=== PATIENT | female | born 1935 | race Caucasian/White ===

== ENCOUNTER → 2019-06-07 13:00 | Outpatient (CLI) | payer MEDICARE, SELFPAY ==
--- NOTE | 2019-06-07 13:09 | ECHOCS_ITS ---
Reason For Study: Aortic Stenosis Procedure This was a 2D Doppler, Color Flow transthoracic echocardiogram. The study was technically difficult. Contrast injection was performed. Exam performed in department. Left Ventricle Normal LV size. Left ventricular systolic function is normal. The estimated ejection fraction is 65 %. No evidence for diastolic dysfunction. No regional wall motion abnormalities noted. Right Ventricle Normal RV size. Normal systolic function. Atria The left atrium is mildly enlarged. Normal right atrium. No doppler evidence for ASD. Mitral Valve There is mild to moderate mitral annular calcification. Extension of the mitral annular calcification onto the mitral valve leaflets. Mild (1+) mitral valve insufficiency. Tricuspid Valve The tricuspid valve is not well visualized. Mild to moderate (1-2+) eccentric tricuspid valve insufficiency. Right ventricular systolic pressure estimated to be 29 mmHg. Aortic Valve Trisinus/trileaflet aortic valve. Moderate focal aortic valve calcification. Aortic valve sclerosis/mild aortic valve stenosis. Pulmonic Valve The pulmonic valve is not well visualized. Great Vessels The aortic root is not well visualized. Pericardium/Pleural No pericardial effusion. Medication 22 gauge I.V. with prn adaptor inserted into right arm. Diluted definity 3ml given slow IV push to enhance endocardial definition. Performed a rapid injection of agitated mix of 9 cc saline and 1cc air to assess for atrial septal defect. MMode/2D Measurements & Calculations LVIDd: 3.9 cm IVSd: 1.5 cm LVOT diam: 2.0 cm LVIDs: 2.1 cm LVPWd: 1.3 cm RVDd: 3.0 cm FS: 47.0 % LVOT area: 3.2 cm2 LAV(MOD-bp): 48.5 ml LA A4 area: 21.0 cm2 RA A4 area: 15.1 cm2 LAV(MOD-bp) Indexed: 29.2 ml/m2 LAV(MOD-sp2): 36.6 ml LAV(MOD-sp4): 59.4 ml Time Measurements MV dec time: 0.32 sec Doppler Measurements & Calculations MV E max ruben: 69.6 cm/sec Lat Peak E' Ruben: 8.6 cm/sec Med Peak E' Ruben: 6.8 cm/sec MV A max ruben: 125.1 cm/sec E/E' lat: 8.1 E/E' med: 10.2 MV E/A: 0.56 MV V2 max: 136.8 cm/sec MV P1/2t max ruben: 91.5 cm/sec Ao V2 max: 196.1 cm/sec MV max P.5 mmHg MV P1/2t: 97.6 msec Ao max P.4 mmHg MV V2 mean: 66.1 cm/sec MV dec slope: 274.4 cm/sec2 Ao V2 mean: 119.4 cm/sec MV mean P.0 mmHg Ao mean P.0 mmHg MV V2 VTI: 31.4 cm MVA(P1/2t): 2.3 cm2 Ao V2 VTI: 34.3 cm MVA(VTI): 2.6 cm2 RICK(I,D): 2.4 cm2 RICK(V,D): 2.0 cm2 LV V1 max: 120.1 cm/sec SV(LVOT): 82.3 ml PA V2 max: 92.5 cm/sec LV V1 max P.8 mmHg LV V1 mean P.8 mmHg LV V1 mean: 76.6 cm/sec LV V1 VTI: 25.5 cm TR max ruben: 254.7 cm/sec TR max P.9 mmHg Interpretation Summary The study was technically difficult. Contrast injection was performed. Left ventricular systolic function is normal. The estimated ejection fraction is 65 %. The left atrium is mildly enlarged. There is mild to moderate mitral annular calcification. Extension of the mitral annular calcification onto the mitral valve leaflets. Mild (1+) mitral valve insufficiency. Mild to moderate (1-2+) eccentric tricuspid valve insufficiency. Moderate focal aortic valve calcification. Aortic valve sclerosis/mild aortic valve stenosis. Right ventricular systolic pressure estimated to be 29 mmHg. No evidence for diastolic dysfunction. Ordering Physician: ARIE HAYWOOD Referring Physician: ARIE HAYWOOD Performed By: Tristen Samaniego RCS
== END ==
PROVIDERS: PCP Internal Medicine
DX: I35.0 Nonrheumatic aortic (valve) stenosis (principal)
CPT/HCPCS: 93306; Q9957; C8929

== ENCOUNTER 2021-04-17 16:45 | Observation (INO) | payer MEDICARE, SELFPAY ==
[2021-04-17] VITALS (7 sets, daily range): BP systolic 145–159; BP diastolic 84–129; PULSE 77–161; RESP 16–20; TEMP 36.4–36.6; O2SAT 95–99; BMI 33.3; BMI 28.6
--- NOTE | 2021-04-17 17:11 | EKG12_ITS ---
Test Reason : TACHY Blood Pressure : / mmHG Vent. Rate : 156 BPM Atrial Rate : 300 BPM P-R Int : 000 ms QRS Dur : 076 ms QT Int : 276 ms P-R-T Axes : 000 067 014 degrees QTc Int : 444 ms Atrial Fibrillation/ Atrial flutter with variable A-V block / nonspecific ST/ T wave abnormality Abnormal ECG Confirmed by MELISSA LOVELL, MATIAS ([id number]), science editor HERMAN FU ([id number]) on 04/20/2021 12:47:41 PM Referred By: CALLUM Confirmed By:MATIAS TORRES MD
--- NOTE | 2021-04-17 17:13 | EDS_ITS ---
HPI History of Present Illness Chief Complaint: Palpitations Informant: patient and spouse/S.O. Narrative Narrative: Patient presents with atrial fibrillation that she thinks started about 3 hours ago. She has had this several times in the past. She is on Xarelto because of this. However she thinks she missed her dose today. She is not having chest pain but she definitely has dyspnea and some dyspnea on exertion. She did have some tingling in her arms and some aching in her shoulders. That is now gone. It sounds like she is always converted on her own or with medication. I does not sound like she has had cardioversion or ablation. She is on nothing for rate control. She is on Synthroid and she thinks the levels were last checked over the summer. Nothing seems to make the symptoms better or worse. This occurred while she was walking back to her house on her driveway. This is an activity she does regularly without difficulties. She is on a few days of prednisone because of back pain issues. The back is doing okay. Patient has no history of cardiovascular disease. She has never had stents or heart catheterization. She normally walks quite a bit without any symptoms. [facility] Medical History Atrial fibrillation Chronic pain Hypertension Hypothyroidism Home Medications irbesartan-hydrochlorothiazide 1 tab PO DAILY 04/17/21 [History Last Taken 04/17/21] levothyroxine 125 mcg PO DAILY 04/17/21 [History Last Taken 04/17/21] omeprazole 20 mg PO DAILY 04/17/21 [History Last Taken 04/17/21] prednisone 20 mg PO BID 04/17/21 [History Last Taken 04/17/21] rivaroxaban [Xarelto] 20 mg PO DAILY 04/17/21 [History Last Taken 04/16/21] tizanidine 4 mg PO Q8H 04/17/21 [History Last Taken Unknown] Allergy/AdvReac Type Severity Reaction Status Date / Time No Known Allergies Allergy Verified 04/17/21 20:04 Social History Smoking Status: Never smoker ROS ROS ED Constitutional Constitutional ED: Denies chills or fever(s) Eyes Eyes: Denies blurry vision ENT ENT ED: Denies rhinorrhea Cardiovascular Cardiovascular: Reports palpitations and racing heartbeat; Denies chest pain Respiratory/Chest Respiratory/Chest: Reports dyspnea; Denies cough or sputum Gastrointestinal Gastrointestinal: Denies nausea or vomiting Genitourinary Genitourinary ED: Denies hematuria Musculoskeletal Musculoskeletal: Denies back pain or neck pain Integumentary Denies rash Neurologic Neurologic: Denies headache(s), paresthesias or weakness Psychiatric Psychiatric: Denies anxiety Endocrine Endocrinology: Denies polydipsia or polyuria Allergic/Immunologic Allergic/Immunologic ED: Denies mouth swelling or urticaria EXAM Physical Exam Const Vital Signs: 04/17/21 16:46 04/17/21 16:49 04/17/21 16:56 Temperature 97.8 F 97.8 F Temperature Source Temporal Temporal Pulse Rate 161 H 157 H Respiratory Rate 18 18 Respiratory Pattern Normal Blood Pressure 146/129 H Blood Pressure Mean 134 Blood Pressure Source Blood Pressure Position Blood Pressure Location Pulse Ox 95 99 Oxygen Delivery Method Room Air Room Air 04/17/21 18:01 04/17/21 19:02 04/17/21 20:02 Temperature 97.5 F L 97.6 F L Temperature Source Temporal Oral Pulse Rate 90 82 79 Respiratory Rate 20 H 16 18 Respiratory Pattern Blood Pressure 145/94 H 145/90 H 159/84 H Blood Pressure Mean 111 108 109 Blood Pressure Source Monitor Blood Pressure Position Semi-Fowlers Blood Pressure Location Right Arm Pulse Ox 97 96 99 Oxygen Delivery Method Room Air Room Air 04/17/21 20:37 Temperature Temperature Source Pulse Rate 79 Respiratory Rate Respiratory Pattern Blood Pressure 159/84 H Blood Pressure Mean Blood Pressure Source Blood Pressure Position Blood Pressure Location Pulse Ox Oxygen Delivery Method Positive well nourished and well developed General Appearance ED: well developed and NAD; Negative for cyanotic or diaphoretic HEENT Reports dry mucous membranes HEENT Narrative: Mildly dry mucous membranes. Mouth ED: Yes dry mucous membranes Mouth: dry mucous membranes Eyes General Eye ED: Negative for pale conjunctiva or scleral icterus Neck no JVD Chest Wall inspection of chest normal Resp normal respiratory effort and clear to auscultation bilaterally Auscultation: Negative for rales Cardio Rate: tachycardic Rhythm: abnormal rhythm GI normal to inspection, nondistended, normoactive bowel sounds and non-tender Palpation: soft Back/Spine no CVA tenderness Extremity normal to inspection General Extremety ED: Negative for edema or tenderness General Extremity: Negative for edema Neuro oriented x3 Sensorium / Orientation: alert Psych mental status grossly normal Skin no rashes or lesions noted MDM MDM MDM Narrative Medical decision making narrative: Patient was given 10 of diltiazem. She slowed down about 115. We are about to give her another dose and she actually converted to normal sinus rhythm. She had occasional PACs. She was feeling better with this. My concern is that this patient's troponin is up at 144. She had some discomfort across her shoulders along with dyspnea and some signs of ST depression on her EKG. This is concerning for what is essentially a failed stress test. I have hospitalist on page to discuss the case with them at this time. Lab Data Attestation: I reviewed the patient's lab results. Labs: Laboratory Results - last 24 hr 04/17/21 04/17/21 16:55 16:55 WBC 11.9 H RBC 3.11 L Hgb 11.0 L Hct 32.9 L MCV 105.8 H MCH 35.4 H MCHC 33.4 RDW Std Deviation 51.8 H RDW Coeff of Yifan 13.3 Plt Count 346 MPV 10.8 Immature Gran % (Auto) 1.000 H Neut % (Auto) 86.2 H Lymph % (Auto) 9.8 L [place] % (Auto) 2.7 Eos % (Auto) 0.1 Baso % (Auto) 0.2 Absolute Neuts (auto) 10.3 H Absolute Lymphs (auto) 1.17 Nucleated RBC % 0 Sodium 138 Potassium 4.2 Chloride 104 Carbon Dioxide 25.0 Anion Gap 9 BUN 30 H Creatinine 0.99 Estim Creat Clear Calc 29.30 Est GFR (MDRD) Af Amer 68 Est GFR (MDRD) Non-Af 57 L BUN/Creatinine Ratio 30.4 H Glucose 139 H Calcium 9.4 Troponin I High Sens 144 H* TSH 1.68 Radiography Diagnostic Testing: Clinical Impression(s) from Imaging Studies Chest X-Ray 04/17/21 17:20 IMPRESSION: No radiographic evidence of acute cardiopulmonary disease. at 2012 Reported and signed by: Victor Hugo Marie MD Electronically Signed: Victor Hugo Marie MD at 20:11 EST Tel , Service support , EKG Initial EKG: Comments: EKG done for palpitations read by me shows atrial fib/flutter with variable block. Overall rate of 156. No ventricular ectopy noted. Mild diffuse ST and T wave changes. No indication of infarct. QRS duration and QTc are normal. No old for comparison. Discharge Plan Dx/Rx/DC Orders Clinical Impression: Atrial fibrillation with RVR, Acute dyspnea, Elevated troponin Disposition Disposition: Acute Care Hospital [facility] Discharge Date/Time: 04/17/21 19:45
[2021-04-17] MEDS: 0.9% Normal Saline 1,000 ML 1000 ML IV (17:20)
[2021-04-17] MEDS: dilTIAZem 25 MG/5 ML Vial 10 MG IV BOLUS ×2 (17:20→17:57)
--- NOTE | 2021-04-17 17:20 | RAD_ITS ---
EXAM: XR CHEST, 1 VIEW : 1934 CLINICAL INDICATION: chest pain TECHNIQUE: Frontal view of the chest. This report was created using [employer] report generation technology. COMPARISON: None. FINDINGS: LUNGS AND PLEURAL SPACES: Unremarkable. No consolidation or edema. No pneumothorax. No effusion. HEART: Unremarkable. Cardiac silhouette not enlarged. MEDIASTINUM: Central airways and mediastinal contour are unremarkable. BONES/JOINTS: Unremarkable. SOFT TISSUES: Unremarkable. RAD/Chest 1 View (Portable) IMPRESSION: No radiographic evidence of acute cardiopulmonary disease. at 2012 Reported and signed by: Victor Hugo Marie MD Electronically Signed: Victor Hugo Marie MD at 20:11 EST Tel , Service support ,
[2021-04-17 17:22] LABS: Absolute Lymphocyte Count 1.17 X10^3/uL (0.83-4.51); Absolute Neutrophil Count 10.3 X10^3/uL (2.0-7.7); Basophil# 0.02 X10^3/uL; Basophil% 0.2 % (0-1); Eosinophil# 0.01 X10^3/uL; Eosinophils% 0.1 % (0-5); Hematocrit 32.9 % (37-47); Lymphocyte # 1.17 X10^3/ul (0.83-4.51); Lymphocyte % 9.8 % (19-41); Mean Corp Hgb Conc 33.4 g/dL (32-36); Mean Corpuscular Hgb 35.4 pg (27.0-32.0); Mean Corpuscular Volume 105.8 fL (81-99); Mean Platelet Vol. 10.8 fl (6.2-12.0); Monocyte# 0.32 X10^3/uL; Monocyte% 2.7 % (0-10); NRBC Flagged by Analyzer 0 % (0-5); Neutrophil # 10.26 X10^3/uL (2.7-7.7); Neutrophil % 86.2 % (47-70); Platelet Count 346 K/mm3 (150-450); RBC Distribution Width CV 13.3 % (11.6-14.6); RBC Distribution Width SD 51.8 fl (35.1-43.9); Red Blood Count 3.11 M/mm3 (4.2-5.4); White Blood Count 11.9 K/mm3 (4.4-11.0)
[2021-04-17 17:52] LABS: Anion Gap 9 (5-15); BUN 30 mg/dL (7-18); BUN/Creat Ratio 30.4 RATIO (10-20); Calcium,Total 9.4 mg/dL (8.5-10.1); Chloride 104 mmol/L (98-107); Creatinine, Serum 0.99 mg/dL (0.55-1.02); EST Glomerular Filtration Rate 57 mL/min (>60); Est Glom Filt Rate - Afr Amer 68 mL/min (>60); Glucose 139 mg/dL (74-106); Potassium 4.2 mmol/L (3.5-5.1); Sodium Level 138 mmol/L (136-145); Thyroid Stim Hormone (TSH) 1.68 uIU/mL (0.358-3.74); Troponin-I HS 144 pg/mL (3.0-54.0)
--- NOTE | 2021-04-17 17:55 | ED.RN ---
Addendum entered by Stephanie La 04/17/21 18:14: correction dr zapata not dr green Addendum entered by Stephanie La 04/17/21 18:12: called for ekg. dr green aware. verbal order to hold cardizem drip Original Note: pt converted to nsr after second dose of cardizem
--- NOTE | 2021-04-17 18:10 | EKG12_ITS ---
Test Reason : REPEAT Blood Pressure : / mmHG Vent. Rate : 083 BPM Atrial Rate : 083 BPM P-R Int : 156 ms QRS Dur : 082 ms QT Int : 362 ms P-R-T Axes : 062 064 046 degrees QTc Int : 425 ms Normal sinus rhythm Normal ECG Confirmed by MEILSSA LOVELL, MATIAS ([id number]), photographic editor HERMAN FU ([id number]) on 04/20/2021 12:48:23 PM Referred By: LAWRENCE Confirmed By:MATIAS TORRES MD
--- NOTE | 2021-04-17 19:01 | HP.PCM.HOS_ITS ---
HPI - General General Date of Admission: 04/17/21 HPI Narrative ALEX TRAN, is a 85 F who presents with chest palpitations and she was outside in the cold weather on her driveway when she noted some acute dyspnea and tingling in her shoulders like she was not getting enough air. She did not have any pronounced chest pain. She was recently on prednisone but does not have any other major events recently that may have precipitated the atrial fibrillation. She has had runs of atrial fibrillation in the past. She follows with her primary care doctor regarding the hypothyroidism. She has a history of GI bleed so she does not take aspirin but she is on Xarelto and is compliant wi this as well as her blood pressure medicine. The patient did come into the ED with her son and she was noted to be in atrial fibrillation, and was given 10 mg Cardizem IV and converted back to NSR. Patient's vitals are stable from blood pressure standpoint and she had no hypoxia. EKG with A. fib was noted with some lateral ST depressions. Troponin did come back elevated mildly at 144. X-ray was reviewed by me with no pronounced cardiomegaly or lobar consolidation process. She is not a smoker or EtOH user Family history was reviewed, not significant for any early heart disease [facility] Medical History Atrial fibrillation Hypertension Hypothyroidism Home Medications irbesartan-hydrochlorothiazide 1 tab PO DAILY 04/17/21 [History Last Taken Unknown] levothyroxine 125 mcg PO DAILY 04/17/21 [History Last Taken Unknown] omeprazole 20 mg PO DAILY 04/17/21 [History Last Taken Unknown] prednisone 20 mg PO BID 04/17/21 [History Last Taken Unknown] rivaroxaban [Xarelto] 20 mg PO DAILY 04/17/21 [History Last Taken Unknown] tizanidine 4 mg PO Q8H 04/17/21 [History Last Taken Unknown] Allergy/AdvReac Type Severity Reaction Status Date / Time No Known Allergies Allergy Verified 04/17/21 16:51 Social History Smoking Status: Never smoker ROS ROS Narrative No fevers, chills, cough nausea vomiting belly pain diarrhea constipation hematuria dysuria. She does not have any issues with falls. She does not have any skin problems but does have a little lower extremity edema at times. She sleeps okay with no underlying anxiety/depression Vital Signs Vital Signs Vital Signs: 04/17/21 16:46 04/17/21 16:49 04/17/21 16:56 Temperature 97.8 F 97.8 F Temperature Source Temporal Temporal Pulse Rate 161 H 157 H Respiratory Rate 18 18 Respiratory Pattern Normal Blood Pressure 146/129 H Blood Pressure Mean 134 Pulse Ox 95 99 Oxygen Delivery Method Room Air Room Air 04/17/21 18:01 Temperature Temperature Source Pulse Rate 90 Respiratory Rate 20 H Respiratory Pattern Blood Pressure 145/94 H Blood Pressure Mean 111 Pulse Ox 97 Oxygen Delivery Method Weight Weight: 170 lb 6.677 oz Body Mass Index (BMI) 33.3 Physical Exam Const alert and no apparent distress General Appearance: cooperative HEENT normocephalic and head/scalp atraumatic Eyes EOMs intact bilaterally Neck no lymphadenopathy and supple Cardio regular rate, regular rhythm and S1 normal heart sound Cardio Narrative: Did note a 2 out of 6 systolic murmur at the right upper sternal border GI normal to inspection, nondistended, normoactive bowel sounds and soft to palpation Extremity normal to inspection Neuro Sensorium / Orientation: alert and oriented to person Psych affect normal Results Lab / Micro Data Result Diagrams: 04/17/21 16:55 04/17/21 16:55 Labs: Laboratory Results - last 24 hr 04/17/21 16:55: WBC 11.9 H, RBC 3.11 L, Hgb 11.0 L, Hct 32.9 L, MCV 105.8 H, MCH 35.4 H, MCHC 33.4, RDW Std Deviation 51.8 H, RDW Coeff of Yifan 13.3, Plt Count 346, MPV 10.8, Immature Gran % (Auto) 1.000 H, Neut % (Auto) 86.2 H, Lymph % (Auto) 9.8 L, [place] % (Auto) 2.7, Eos % (Auto) 0.1, Baso % (Auto) 0.2, Absolute Neuts (auto) 10.3 H, Absolute Lymphs (auto) 1.17, Nucleated RBC % 0 04/17/21 16:55: Sodium 138, Potassium 4.2, Chloride 104, Carbon Dioxide 25.0, Anion Gap 9, BUN 30 H, Creatinine 0.99, Estim Creat Clear Calc 29.30, Est GFR (MDRD) Af Amer 68, Est GFR (MDRD) Non-Af 57 L, BUN/Creatinine Ratio 30.4 H, Glucose 139 H, Calcium 9.4, Troponin I High Sens 144 H*, TSH 1.68 Assessment & Plan Assessment/Plan (1) Elevated troponin: (2) Acute dyspnea: (3) Atrial fibrillation with RVR: PLAN: Atrial fibrillation resolved Elevated troponin -For atrial fibrillation we will start Lopressor 12.5 twice daily -Continue Xarelto for anticoagulation -Cycle troponins x2 more -Check mag, and check her TSH and morning -Given 1 L IVF iin the ED -2D echo. Last echo nearly 2 years ago did show EF of 65% with mitral and tricuspid valve insufficiency and moderate aortic valve calcifications -Monitor with telemetry -Check Lipid panel. Start Lipitor 20 mg -Start aspirin 81 mg, and continue the patient on indefinite PPI for GI prophylaxis given history of GI bleed in the past Hypothyroidism -Resume home Synthroid 125 Hypertension -Resume home medication CODE STATUS: Patient is a DNR and this was discussed with the patient and family Ulisses Carballo MD Charges/Coding Visit Charges Inpatient E&M: 88804 Init Hosp L2
--- NOTE | 2021-04-17 19:09 | ECHOD_ITS ---
Reason For Study: Afib, Aflutter Procedure This was a 2D Doppler, Color Flow transthoracic echocardiogram. The study was technically difficult. Exam performed portable in patient room. Left Ventricle Normal LV size. Moderate concentric left ventricular hypertrophy. Apical false tendon noted. Left ventricular systolic function is hyperdynamic. The estimated ejection fraction is 75 %. There is evidence of diastolic dysfunction. No regional wall motion abnormalities noted. Right Ventricle Normal RV size. Normal systolic function. Atria Normal left atrium. Normal right atrium. No doppler evidence for ASD. Mitral Valve There is moderate to severe mitral annular calcification. Extension of the mitral annular calcification onto the posterior mitral valve leaflet. Mild focal mitral valve calcification of the anterior leaflet. The mitral papillary muscle appears thickened and/or calcified. Mild (1+) eccentric mitral valve insufficiency. Tricuspid Valve Normal tricuspid valve. Mild to moderate (1-2+) tricuspid valve insufficiency. Right ventricular systolic pressure estimated to be 37 mmHg. Aortic Valve Trisinus/trileaflet aortic valve. Mild focal aortic valve calcification. Pulmonic Valve The pulmonic valve is not well visualized. Mild (1+) pulmonic valve insufficiency. Great Vessels Normal sized aortic root. Pericardium/Pleural No pericardial effusion. MMode/2D Measurements & Calculations LVIDd: 3.3 cm IVSd: 1.4 cm LVOT diam: 2.1 cm LVIDs: 1.9 cm LVPWd: 1.3 cm LVOT area: 3.5 cm2 RVDd: 3.4 cm FS: 41.0 % Ao root diam: 3.4 cm LAV(MOD-bp): 30.5 ml LVAd ap4: 14.1 cm2 LAV(MOD-bp) Indexed: 18.7 ml/m2 LVLd ap4: 6.2 cm LAV(MOD-sp2): 26.8 ml EDV(MOD-sp4): 26.6 ml LAV(MOD-sp4): 30.9 ml EDV(sp4-el): 27.0 ml LVAs ap4: 6.9 cm2 LVLs ap4: 5.0 cm ESV(MOD-sp4): 8.2 ml ESV(sp4-el): 8.1 ml EF(MOD-sp4): 69.0 % EF(sp4-el): 70.2 % SV(MOD-sp4): 18.3 ml SV(sp4-el): 19.0 ml LA A4 area: 14.3 cm2 LA dimension(2D): 2.7 cm RA A4 area: 10.7 cm2 Doppler Measurements & Calculations MV E max ruben: 83.0 cm/sec Lat Peak E' Ruben: 5.5 cm/sec Med Peak E' Ruben: 4.5 cm/sec MV A max ruben: 131.6 cm/sec E/E' lat: 15.1 E/E' med: 18.4 MV E/A: 0.63 Ao V2 max: 247.1 cm/sec LV V1 max: 182.5 cm/sec SV(LVOT): 101.2 ml Ao max P.5 mmHg LV V1 max P.3 mmHg Ao V2 mean: 180.1 cm/sec LV V1 mean P.3 mmHg Ao mean P.4 mmHg LV V1 mean: 137.2 cm/sec Ao V2 VTI: 38.5 cm LV V1 VTI: 28.9 cm RICK(I,D): 2.6 cm2 RICK(V,D): 2.6 cm2 PA V2 max: 103.0 cm/sec TR max ruben: 290.5 cm/sec TR max P.8 mmHg ECHO/Echo Complete Interpretation Summary Left ventricular systolic function is hyperdynamic. The estimated ejection fraction is 75 %. Moderate concentric left ventricular hypertrophy. Apical false tendon noted. There is moderate to severe mitral annular calcification. Extension of the mitral annular calcification onto the posterior mitral valve l eaflet. Mild focal mitral valve calcification of the anterior leaflet. The mitral papillary muscle appears thickened and/or calcified. Mild (1+) eccentric mitral valve insufficiency. Mild to moderate (1-2+) tricuspid valve insufficiency. Mild focal aortic valve calcification. Mild (1+) pulmonic valve insufficiency. Right ventricular systolic pressure estimated to be 37 mmHg. There is evidence of diastolic dysfunction. Comment: Late peaking spectral Doppler pattern in the mid LV cavity approaching 3 m/s (peak gradient 36 mmHg) appearing compatible with a hyperdynamic state. Ordering Physician: Ulisses Carballo Referring Physician: Art Hayward Performed By: Renata Valladares, ODALYS, RVT
[2021-04-17] MEDS: Metoprolol Tartrate 25 MG Tablet 12.5 MG PO (20:37)
[2021-04-17] MEDS: Atorvastatin Calcium 20 MG Tablet PO (20:38)
--- NOTE | 2021-04-17 23:51 | PCS.PANDOC ---
PANDEMIC DOCUMENTATION INITIATED: Date: 11/23/2020 Time: 190
--- NOTE | 2021-04-17 23:51 | PCS.PANDOC ---
PANDEMIC DOCUMENTATION INITIATED: Date: 11/23/2020 Time: 190
[2021-04-18] VITALS (13 sets, daily range): BP systolic 164–196; BP diastolic 74–108; PULSE 67–83; RESP 14–20; TEMP 36.7–37.2; O2SAT 96–99
[2021-04-18 00:14] LABS: Troponin-I HS 1562 pg/mL (3.0-54.0)
[2021-04-18] MEDS: Acetaminophen 325 MG Tablet 650 MG PO (00:33)
[2021-04-18 05:17] LABS: Absolute Lymphocyte Count 2.79 X10^3/uL (0.83-4.51); Basophil# 0.03 X10^3/uL; Basophil% 0.3 % (0-1); Eosinophils% 1.1 % (0-5); Hematocrit 29.9 % (37-47); Hemoglobin 9.7 g/dL (12.0-15.0); Lymphocyte # 2.79 X10^3/ul (0.83-4.51); Lymphocyte % 29.6 % (19-41); Mean Corp Hgb Conc 32.4 g/dL (32-36); Mean Corpuscular Hgb 34.4 pg (27.0-32.0); Mean Platelet Vol. 10.3 fl (6.2-12.0); Monocyte# 0.47 X10^3/uL; NRBC Flagged by Analyzer 0 % (0-5); Neutrophil # 5.95 X10^3/uL (2.7-7.7); Platelet Count 300 K/mm3 (150-450); RBC Distribution Width CV 13.3 % (11.6-14.6); RBC Distribution Width SD 51.5 fl (35.1-43.9); Red Blood Count 2.82 M/mm3 (4.2-5.4); White Blood Count 9.4 K/mm3 (4.4-11.0)
[2021-04-18] MEDS: Levothyroxine 125 MCG Tablet PO (06:11)
[2021-04-18] MEDS: Metoprolol Tartrate 25 MG Tablet 12.5 MG PO (06:40)
[2021-04-18 06:43] LABS: Anion Gap 7 (5-15); BUN 23 mg/dL (7-18); BUN/Creat Ratio 25.4 RATIO (10-20); Chloride 106 mmol/L (98-107); Cholesterol 161 mg/dL (200); EST Glomerular Filtration Rate 63 mL/min (>60); Est Glom Filt Rate - Afr Amer 76 mL/min (>60); Estimated Creatinine Clearance 32.23 ml/min; Glucose 94 mg/dL (74-106); High Density Lipoprotein 53 mg/dL; Potassium 4.2 mmol/L (3.5-5.1); Sodium Level 140 mmol/L (136-145); Thyroid Stim Hormone (TSH) 2.88 uIU/mL (0.358-3.74); Triglycerides 96 mg/dL; Troponin-I HS 1639 pg/mL (3.0-54.0); Very Low Density Lipoprotein 19 mg/dL (5-40)
[2021-04-18] MEDS: Losartan Potassium 50 MG Tablet PO ×2 (08:06→14:03)
[2021-04-18] MEDS: Aspirin 81 MG TAB.CHEW PO (08:06)
[2021-04-18] MEDS: Pantoprazole Sodium 20 MG Tablet PO (08:06)
[2021-04-18] MEDS: hydroCHLOROthiazide 12.5mg 12.5 MG PO ×2 (08:07→17:44)
--- NOTE | 2021-04-18 12:35 | PN.HOSP_ITS ---
Documented by User: Jorge BELL 04/18/21 12:49 Subjective Subjective Patient is an 85-year-old female comfortably resting in bed, alert and orient x3. Patient denies palpitations or chest pain, reports ongoing shortness of breath which is a chronic problem for her. Patient also reports right shoulder pain. Does not appear in acute distress. Objective Data Objective Data Vital Signs: Vital Signs Temp Pulse Resp BP Pulse Ox 98.0 F 67 18 167/92 H 98 04/18/21 08:03 04/18/21 08:03 04/18/21 08:03 04/18/21 08:03 04/18/21 08:03 Oxygen Delivery Method Room Air Weight: 146 lb 9.718 oz Body Mass Index (BMI) 28.6 Intake & Output: Intake and Output for Last 24 Hours 04/16/21 04/17/21 04/18/21 23:59 23:59 23:59 Intake Total 1000 / 1000 Balance 1000 / 1000 Lab / Micro Data Result Diagrams: 04/18/21 05:04 04/18/21 05:04 Labs: Laboratory Results - last 24 hr 04/17/21 16:55: WBC 11.9 H, RBC 3.11 L, Hgb 11.0 L, Hct 32.9 L, MCV 105.8 H, MCH 35.4 H, MCHC 33.4, RDW Std Deviation 51.8 H, RDW Coeff of Yifan 13.3, Plt Count 346, MPV 10.8, Immature Gran % (Auto) 1.000 H, Neut % (Auto) 86.2 H, Lymph % (Auto) 9.8 L, [place] % (Auto) 2.7, Eos % (Auto) 0.1, Baso % (Auto) 0.2, Absolute Neuts (auto) 10.3 H, Absolute Lymphs (auto) 1.17, Nucleated RBC % 0 04/17/21 16:55: Sodium 138, Potassium 4.2, Chloride 104, Carbon Dioxide 25.0, Anion Gap 9, BUN 30 H, Creatinine 0.99, Estim Creat Clear Calc 29.30, Est GFR (MDRD) Af Amer 68, Est GFR (MDRD) Non-Af 57 L, BUN/Creatinine Ratio 30.4 H, Glucose 139 H, Calcium 9.4, Troponin I High Sens 144 H*, TSH 1.68 01/08/22 23:12: Troponin I High Sens 1562 H* 04/18/21 05:04: WBC 9.4, RBC 2.82 L, Hgb 9.7 L, Hct 29.9 L, MCV 106.0 H, MCH 34.4 H, MCHC 32.4, RDW Std Deviation 51.5 H, RDW Coeff of Yifan 13.3, Plt Count 300, MPV 10.3, Immature Gran % (Auto) 1.000 H, Neut % (Auto) 63.0, Lymph % (Auto) 29.6, [place] % (Auto) 5.0, Eos % (Auto) 1.1, Baso % (Auto) 0.3, Absolute Neuts (auto) 6.0, Absolute Lymphs (auto) 2.79, Nucleated RBC % 0 04/18/21 05:04: Sodium 140, Potassium 4.2, Chloride 106, Carbon Dioxide 27.0, Anion Gap 7, BUN 23 H, Creatinine 0.90, Estim Creat Clear Calc 32.23, Est GFR (MDRD) Af Amer 76, Est GFR (MDRD) Non-Af 63, BUN/Creatinine Ratio 25.4 H, Glucose 94, Calcium 9.0, Troponin I High Sens 1639 H*, Triglycerides 96, Cholesterol 161, LDL Cholesterol 89, VLDL Cholesterol 19, HDL Cholesterol 53, TSH 2.88 Radiography Diagnostic Testing: Radiology Impression Chest X-Ray 04/17/21 17:20 IMPRESSION: No radiographic evidence of acute cardiopulmonary disease. at 2012 Reported and signed by: Victor Hugo Marie MD Electronically Signed: Victor Hugo Marie MD at 20:11 EST Tel , Service support , Physical Exam Const alert, oriented x3 and no apparent distress HEENT head/scalp atraumatic and moist oral mucous membranes Head and Scalp: normocephalic Eyes PERRL, EOMs intact bilaterally and conjunctivae normal Neck no lymphadenopathy, supple and no JVD Resp normal respiratory effort, no retractions, no use of accessory muscles and clear to auscultation bilaterally Cardio regular rate, regular rhythm, no murmurs and no JVD GI normal to inspection, nondistended, normoactive bowel sounds, soft to palpation and non-tender Extremity normal to inspection, full ROM and no clubbing, cyanosis or edema Skin no rashes or lesions noted, no wounds and skin turgor normal Neuro CN's II-XII intact bilaterally Psych affect normal Assessment & Plan Assessment/Plan (1) Atrial fibrillation with RVR: (2) Acute dyspnea: (3) Elevated troponin: PLAN: Day 1 Discharge planning: Current plan is for patient to discharge home when medically ready. 1) A. fib with RVR Patient is currently maintaining normal sinus rhythm. Rate is currently controlled on oral diltiazem and metoprolol. Cardizem drip discontinued this morning, per cardiology recommendations. TSH within normal limits, magnesium ordered/pending, potassium within normal limits. Obtain echo in a.m. 2) elevated troponin High-sensitivity troponins elevated at 144, 1562 and 1639 respectively. Lipid panel within normal limits. Cardiology consult ordered, heparin drip initiated. Continue aspirin and statin. 3) hypothyroidism TSH within normal limits, as above. Continue home Synthroid. 4) HTN Continue metoprolol, hydrochlorothiazide and losartan. 5) chronic back pain Stable, continue tizanidine. 6) GERD Continue Protonix. DVT prophylaxis -not indicated, on heparin drip as above. Patient seen by Jorge De Jesus PA-C, under the supervision of Dr. Tate. Time spent on patient care: 12 minutes. Documented by User: Dr. Jayla Tate MD 04/18/21 17:51 Objective Data Lab / Micro Data Result Diagrams: 04/18/21 05:04 04/18/21 05:04 Charges/Coding Addendum Addendum: This patient was seen in conjunction with ARABELLA Monique. I have independently interviewed and examined the patient and reviewed pertinent historical, laboratory, and other data. Please refer to ARABELLA Monique's note for his patient's presentation, findings, and recommendations. I have reviewed and his note and concur with his documentation Patient was seen and examined. She denied any new complaints. Her heart rate is controlled. No acute events overnight. Vitals are stable except for uncontrolled blood pressure Physical Exam: Gen: Comfortable, not pale, not jaundiced CVS:HS I +II, regular, no murmurs RESP: Diminished at lung bases GI: BS present and normal, soft, nontender, no palpable organs EXT:No edema ASSESSMENT: 1. A. fib with RVR 2. Acute non-STEMI 3. Hypertensive urgency 4. Hypothyroidism 5. Hypertension 6. Chronic low back pain 7. GERD Plan: Continue to wean off Cardizem drip, continue on oral Cardizem and metoprolol Discussed with cardiology, start on heparin drip Possible cardiac cath in a.m. Increase losartan 200 mg p.o. daily Increase metoprolol to 50 mg p.o. daily Increase hydrochlorothiazide to 25 mg p.o. daily Continue to monitor blood pressure Time spent coordinating patient's care, discussing with nursing, discussing with subspecialists: 25 minutes Visit Charges Inpatient E&M: 87468 Subs Hosp L3
[2021-04-18 13:25] LABS: Partial Thromboplast Time 26.9 Seconds (24.1-36.2)
[2021-04-18 13:43] LABS: Magnesium 2.1 mg/dL (1.6-2.6)
--- NOTE | 2021-04-18 14:24 | PCM.CONS.C ---
Assessment & Plan Assessment/Plan (1) Atrial fibrillation with RVR: (2) Acute dyspnea: (3) Elevated troponin: PLAN: 85-year-old patient presented to the ER here at [facility] with symptoms of palpitation with shortness of breath Noted to be in A. fib with RVR was given Cardizem IV converted to normal sinus remains in normal sinus since then. Cardiac auscultation requested because of elevated cardiac biomarker with high sensitive troponin I up to 1639 This patient known to have history of A. fib with RVR and has been seen and followed by [facility] and was on treatment with anticoagulation using DOAC/Xarelto Other medical problem include history of hypothyroidism has been on levothyroxine, osteoarthritis. Otherwise she is active and usually walk daily. Cardiac care plan and recommendations; 1. I discussed the need of providing further cardiac assessment by cardiac catheterization which will be set up in the morning by Dr. Teran Risk and benefit explained in detail to the patient and she elected to proceed. Precath orders have been submitted 2. Approach will be right radial approach as the patient has been on DOAC/Xarelto which he discontinued 3. Patient has a prior echocardiographic evaluation we will repeat an echo in this admission, LV function is preserved has a mild MR, mild TR with mild calcific aortic valve stenosis. 4. We will continue current medical treatment. 5. Noted patient CODE STATUS is DNR CC?A no intubation HPI Consult Data Date of Consult: 04/18/21 HPI Narrative Reason for Consultation: Non-ST elevation NH/A. fib with RVR HPI Narrative: ALEX TRAN, is a 85 F who presents [facility] Medical History Atrial fibrillation Chronic pain Hypertension Hypothyroidism Home Medications irbesartan-hydrochlorothiazide 1 tab PO DAILY 04/17/21 [History Last Taken 04/17/21] levothyroxine 125 mcg PO DAILY 04/17/21 [History Last Taken 04/17/21] omeprazole 20 mg PO DAILY 04/17/21 [History Last Taken 04/17/21] prednisone 20 mg PO BID 04/17/21 [History Last Taken 04/17/21] rivaroxaban [Xarelto] 20 mg PO DAILY 04/17/21 [History Last Taken 04/16/21] tizanidine 4 mg PO Q8H 04/17/21 [History Last Taken Unknown] Allergy/AdvReac Type Severity Reaction Status Date / Time No Known Allergies Allergy Verified 04/17/21 20:04 Social History Smoking Status: Never smoker Physical Exam Narrative Seen and evaluated today at bedside along with the nursing staff Alert and orientated x3 Cardiac telemetry revealed underlying normal sinus rhythm Cardiac examination; S1-S2 is regular, systolic murmur heard in the aortic valve area There is no diastolic murmur, no pericardial rub or gallop Chest examination; Clear to auscultation bilaterally Abdomen not distended soft Examination lower extremity no clubbing no cyanosis no lower extremity edema. Risk Stratification Risk Stratification Applicable: Yes Age >/= 65: Yes >/= 3 CAD Risk Factors (HTN, HLD, DM, family hx of CAD, or current smoker): Yes (htn) Aspirin Use in the Past 7 Days: No Severe Angina (>/= episodes in 24 hours): No EKG ST Changes >/= 0.5mm: No Positive Cardiac Marker: Yes FRED Risk Stratification Score: 3 FRED % Risk: 13% Risk Objective Data Vital Signs: Vital Signs Temp Pulse Resp BP Pulse Ox 98.0 F 83 16 196/108 H 96 04/18/21 12:57 04/18/21 12:57 04/18/21 12:57 04/18/21 12:57 04/18/21 12:57 Oxygen Delivery Method Room Air Weight: 146 lb 9.718 oz Body Mass Index (BMI) 28.6 Intake & Output: Intake and Output for Last 24 Hours 04/16/21 04/17/21 04/18/21 23:59 23:59 23:59 Intake Total 1000 / 1000 240 / 240 Balance 1000 / 1000 240 / 240 Lab / Micro Data Result Diagrams: 04/18/21 05:04 04/18/21 05:04 Labs: Laboratory Results - last 24 hr 04/17/21 16:55: WBC 11.9 H, RBC 3.11 L, Hgb 11.0 L, Hct 32.9 L, MCV 105.8 H, MCH 35.4 H, MCHC 33.4, RDW Std Deviation 51.8 H, RDW Coeff of Yifan 13.3, Plt Count 346, MPV 10.8, Immature Gran % (Auto) 1.000 H, Neut % (Auto) 86.2 H, Lymph % (Auto) 9.8 L, [place] % (Auto) 2.7, Eos % (Auto) 0.1, Baso % (Auto) 0.2, Absolute Neuts (auto) 10.3 H, Absolute Lymphs (auto) 1.17, Nucleated RBC % 0 04/17/21 16:55: Sodium 138, Potassium 4.2, Chloride 104, Carbon Dioxide 25.0, Anion Gap 9, BUN 30 H, Creatinine 0.99, Estim Creat Clear Calc 29.30, Est GFR (MDRD) Af Amer 68, Est GFR (MDRD) Non-Af 57 L, BUN/Creatinine Ratio 30.4 H, Glucose 139 H, Calcium 9.4, Troponin I High Sens 144 H*, TSH 1.68 04/17/21 23:12: Troponin I High Sens 1562 H* 04/18/21 05:04: WBC 9.4, RBC 2.82 L, Hgb 9.7 L, Hct 29.9 L, MCV 106.0 H, MCH 34.4 H, MCHC 32.4, RDW Std Deviation 51.5 H, RDW Coeff of Yifan 13.3, Plt Count 300, MPV 10.3, Immature Gran % (Auto) 1.000 H, Neut % (Auto) 63.0, Lymph % (Auto) 29.6, [place] % (Auto) 5.0, Eos % (Auto) 1.1, Baso % (Auto) 0.3, Absolute Neuts (auto) 6.0, Absolute Lymphs (auto) 2.79, Nucleated RBC % 0 04/18/21 05:04: Sodium 140, Potassium 4.2, Chloride 106, Carbon Dioxide 27.0, Anion Gap 7, BUN 23 H, Creatinine 0.90, Estim Creat Clear Calc 32.23, Est GFR (MDRD) Af Amer 76, Est GFR (MDRD) Non-Af 63, BUN/Creatinine Ratio 25.4 H, Glucose 94, Calcium 9.0, Troponin I High Sens 1639 H*, Triglycerides 96, Cholesterol 161, LDL Cholesterol 89, VLDL Cholesterol 19, HDL Cholesterol 53, TSH 2.88 04/18/21 05:04: Magnesium 2.1 04/18/21 13:09: PT 13.0, INR 1.0, APTT 26.9 Cardiology Labs/Tests 04/17/21 16:55: WBC 11.9 H, RBC 3.11 L, Hgb 11.0 L, Hct 32.9 L, MCV 105.8 H, MCH 35.4 H, MCHC 33.4, Plt Count 346, MPV 10.8, Immature Gran % (Auto) 1.000 H, Neut % (Auto) 86.2 H, Lymph % (Auto) 9.8 L, [place] % (Auto) 2.7, Eos % (Auto) 0.1, Baso % (Auto) 0.2, Absolute Neuts (auto) 10.3 H, Nucleated RBC % 0 04/17/21 16:55: Sodium 138, Potassium 4.2, Chloride 104, Carbon Dioxide 25.0, Anion Gap 9, BUN 30 H, Creatinine 0.99, Est GFR (MDRD) Af Amer 68, Est GFR (MDRD) Non-Af 57 L, BUN/Creatinine Ratio 30.4 H, Glucose 139 H, Calcium 9.4 04/18/21 05:04: WBC 9.4, RBC 2.82 L, Hgb 9.7 L, Hct 29.9 L, MCV 106.0 H, MCH 34.4 H, MCHC 32.4, Plt Count 300, MPV 10.3, Immature Gran % (Auto) 1.000 H, Neut % (Auto) 63.0, Lymph % (Auto) 29.6, [place] % (Auto) 5.0, Eos % (Auto) 1.1, Baso % (Auto) 0.3, Absolute Neuts (auto) 6.0, Nucleated RBC % 0 04/18/21 05:04: Sodium 140, Potassium 4.2, Chloride 106, Carbon Dioxide 27.0, Anion Gap 7, BUN 23 H, Creatinine 0.90, Est GFR (MDRD) Af Amer 76, Est GFR (MDRD) Non-Af 63, BUN/Creatinine Ratio 25.4 H, Glucose 94, Calcium 9.0, Triglycerides 96, Cholesterol 161, LDL Cholesterol 89, VLDL Cholesterol 19, HDL Cholesterol 53 04/18/21 05:04: Magnesium 2.1 04/18/21 13:09: PT 13.0, INR 1.0, APTT 26.9 Rhythm: Normal sinus rhythm EKG: Normal sinus rhythm, no significant ST?the abnormalities noted. Non-ST elevation NH/A. fib with RVR Radiography Diagnostic Testing: Radiology Impression Chest X-Ray 04/17/21 17:20 IMPRESSION: No radiographic evidence of acute cardiopulmonary disease. at 2012 Reported and signed by: Victor Hugo Marie MD Electronically Signed: Victor Hugo Marie MD at 20:11 EST Tel , Service support ,
[2021-04-18] MEDS: 0.9% Saline Lock 10 ML Syringe IV ×2 (14:51→21:58)
[2021-04-18 21:44] LABS: Partial Thromboplast Time 44.9 Seconds (24.1-36.2)
[2021-04-18] MEDS: Atorvastatin Calcium 20 MG Tablet PO (21:45)
[2021-04-18] MEDS: tiZANidine HCl 2 MG Tablet 4 MG PO (21:45)
[2021-04-18] MEDS: dilTIAZem CD 120 MG Capsule PO (21:48)
[2021-04-18] MEDS: Metoprolol Tartrate 50 MG Tablet PO (21:48)
[2021-04-18] MEDS: Heparin Injection (Vial) 5,000 UNIT/ML VIAL IV (22:02)
[2021-04-19] VITALS (9 sets, daily range): BP systolic 134–184; BP diastolic 69–95; PULSE 57–80; RESP 16–18; TEMP 36.5–36.7; O2SAT 93–98
[2021-04-19 04:11] LABS: Absolute Lymphocyte Count 2.49 X10^3/uL (0.83-4.51); Absolute Neutrophil Count 7.1 X10^3/uL (2.0-7.7); Basophil# 0.06 X10^3/uL; Basophil% 0.6 % (0-1); Eosinophils% 1.9 % (0-5); Hematocrit 33.7 % (37-47); Hemoglobin 11.5 g/dL (12.0-15.0); Lymphocyte # 2.49 X10^3/ul (0.83-4.51); Lymphocyte % 23.4 % (19-41); Mean Corp Hgb Conc 34.1 g/dL (32-36); Mean Corpuscular Hgb 35.7 pg (27.0-32.0); Mean Corpuscular Volume 104.7 fL (81-99); Mean Platelet Vol. 10.3 fl (6.2-12.0); Monocyte% 4.7 % (0-10); NRBC Flagged by Analyzer 0 % (0-5); Neutrophil # 7.11 X10^3/uL (2.7-7.7); Neutrophil % 66.6 % (47-70); Platelet Count 326 K/mm3 (150-450); RBC Distribution Width CV 13.2 % (11.6-14.6); RBC Distribution Width SD 50.5 fl (35.1-43.9); Red Blood Count 3.22 M/mm3 (4.2-5.4); White Blood Count 10.7 K/mm3 (4.4-11.0)
[2021-04-19 04:24] LABS: Partial Thromboplast Time 105.3 Seconds (24.1-36.2)
[2021-04-19 04:26] LABS: Anion Gap 7 (5-15); BUN 26 mg/dL (7-18); BUN/Creat Ratio 28.6 RATIO (10-20); Calcium,Total 9.1 mg/dL (8.5-10.1); Chloride 105 mmol/L (98-107); Creatinine, Serum 0.91 mg/dL (0.55-1.02); EST Glomerular Filtration Rate 62 mL/min (>60); Est Glom Filt Rate - Afr Amer 75 mL/min (>60); Estimated Creatinine Clearance 31.88 ml/min; Glucose 109 mg/dL (74-106); Potassium 3.8 mmol/L (3.5-5.1); Sodium Level 139 mmol/L (136-145)
--- NOTE | 2021-04-19 05:00 | EKG12_ITS ---
Test Reason : AM EKG Blood Pressure : / mmHG Vent. Rate : 062 BPM Atrial Rate : 062 BPM P-R Int : 144 ms QRS Dur : 086 ms QT Int : 422 ms P-R-T Axes : 063 067 051 degrees QTc Int : 428 ms Normal sinus rhythm Normal ECG When compared with ECG of 17-APR-2021 18:48, No significant change was found Confirmed by ANGELIQUE OLVELL, DARIO ([id number]), industrial editor VIRGINIA LOPEZ ([id number]) on 04/23/2021 8:13:55 AM Referred By: [id number] Confirmed By:BRITTANIE MERINO MD
[2021-04-19] MEDS: Levothyroxine 125 MCG Tablet PO (06:38)
[2021-04-19] MEDS: Aspirin 81 MG TAB.CHEW PO (06:39)
[2021-04-19] MEDS: hydroCHLOROthiazide 25 MG Tablet PO (06:40)
[2021-04-19] MEDS: Pantoprazole Sodium 20 MG Tablet PO (06:40)
[2021-04-19] MEDS: Losartan Potassium 100 MG Tablet PO (06:43)
[2021-04-19] MEDS: dilTIAZem CD 120 MG Capsule PO (06:43)
[2021-04-19] MEDS: Metoprolol Tartrate 50 MG Tablet PO (06:43)
--- NOTE | 2021-04-19 08:47 | PN.CARD_ITS ---
Subjective Subjective The patient is a can alert. She denies any ongoing symptoms of classic angina pectoris or acute CHF at this time. She states she has noted intermittent brief episodes of her rapid heart rate. Objective Data Vital Signs: Vital Signs Temp Pulse Resp BP Pulse Ox 98.1 F 57 L 16 175/95 H 98 04/19/21 08:33 04/19/21 08:33 04/19/21 08:33 04/19/21 08:33 04/19/21 08:33 Oxygen Delivery Method Room Air Weight: 146 lb 9.718 oz Body Mass Index (BMI) 28.6 Intake & Output: Intake and Output for Last 24 Hours 04/17/21 04/18/21 04/19/21 23:59 23:59 23:59 Intake Total 1000 / 1000 537.2 / 737.2 328.05 / 328.05 Balance 1000 / 1000 537.2 / 737.2 328.05 / 328.05 Lab / Micro Data Result Diagrams: 04/19/21 04:04 04/19/21 04:04 Labs: Laboratory Results - last 24 hr 04/18/21 05:04: Magnesium 2.1 04/18/21 13:09: PT 13.0, INR 1.0, APTT 26.9 04/18/21 20:50: APTT 44.9 H 04/19/21 04:04: WBC 10.7, RBC 3.22 L, Hgb 11.5 L, Hct 33.7 L, MCV 104.7 H, MCH 35.7 H, MCHC 34.1 D, RDW Std Deviation 50.5 H, RDW Coeff of Yifan 13.2, Plt Count 326, MPV 10.3, Immature Gran % (Auto) 2.800 H, Neut % (Auto) 66.6, Lymph % (Auto) 23.4, [place] % (Auto) 4.7, Eos % (Auto) 1.9, Baso % (Auto) 0.6, Absolute Neuts (auto) 7.1, Absolute Lymphs (auto) 2.49, Nucleated RBC % 0 04/19/21 04:04: Sodium 139, Potassium 3.8, Chloride 105, Carbon Dioxide 27.0, Anion Gap 7, BUN 26 H, Creatinine 0.91, Estim Creat Clear Calc 31.88, Est GFR (MDRD) Af Amer 75, Est GFR (MDRD) Non-Af 62, BUN/Creatinine Ratio 28.6 H, Glucose 109 H, Calcium 9.1 04/19/21 04:04: APTT 105.3 H* Cardiology Labs/Tests 04/18/21 05:04: Magnesium 2.1 04/18/21 13:09: PT 13.0, INR 1.0, APTT 26.9 04/18/21 20:50: APTT 44.9 H 04/19/21 04:04: WBC 10.7, RBC 3.22 L, Hgb 11.5 L, Hct 33.7 L, MCV 104.7 H, MCH 35.7 H, MCHC 34.1 D, Plt Count 326, MPV 10.3, Immature Gran % (Auto) 2.800 H, Neut % (Auto) 66.6, Lymph % (Auto) 23.4, [place] % (Auto) 4.7, Eos % (Auto) 1.9, Baso % (Auto) 0.6, Absolute Neuts (auto) 7.1, Nucleated RBC % 0 04/19/21 04:04: Sodium 139, Potassium 3.8, Chloride 105, Carbon Dioxide 27.0, An ion Gap 7, BUN 26 H, Creatinine 0.91, Est GFR (MDRD) Af Amer 75, Est GFR (MDRD) Non-Af 62, BUN/Creatinine Ratio 28.6 H, Glucose 109 H, Calcium 9.1 04/19/21 04:04: APTT 105.3 H* Rhythm: Sinus rhythm; brief episodes appearing compatible with PAF EKG: Sinus rhythm Physical Exam Const alert, oriented x3 and healthy appearing Orientation / Consciousness: awake HEENT normocephalic, head/scalp atraumatic and hearing grossly normal bilaterally Eyes PERRL, EOMs intact bilaterally and conjunctivae normal Neck full ROM, supple and no JVD Resp clear to auscultation bilaterally Cardio regular rate, regular rhythm, S1 normal heart sound and S2 normal heart sound Heart Sounds: murmur systolic II/ soft mid left sternal border GI normal to inspection, nondistended, normoactive bowel sounds Extremity no pedal edema Skin no rashes or lesions noted Psych mental status grossly normal Assessment & Plan Assessment/Plan (1) Elevated troponin: PLAN: The patient does have elevated troponin I levels. At the moment is unclear whether the patient has experienced an acute coronary syndrome type I event versus her troponin I levels being elevated secondary to her atrial fibrillation and being a type II event. At the moment she appears to be symptomatically stable. She is being monitored. She has been recommended by Dr. Yo for further evaluation with diagnostic cardiac catheterization. The procedure and risks were discussed with her. She was agreeable to this approach. Of note she states that her last dose of rivaroxaban/Xarelto was on 04-16-2021. (2) Atrial fibrillation with RVR: PLAN: She does have a history of atrial fibrillation previously followed by Dr. Rai Hi. She has been on rate limiting therapy and anticoagulant therapy. Her cardiac rhythm monitor demonstrates brief episodes of her PAF. Depending upon her cardiovascular evaluation she may need consideration for antiarrhythmic therapy as well to assist in controlling her atrial dysrhythmia. (3) HTN (hypertension): PLAN: Her blood pressure will be followed. Her medications can be adjusted accordingly. Addt'l Comments This note was generated using a voice recognition system and there may be incorrect words, spelling or punctuation that were not noted when reviewing the office note prior to saving. Procedure Criteria Type of Procedure Procedure Type: Elective Elective Risks - COVID COVID Risk Discussion: The surgeon/proceduralist and patient have discussed in detail the risk of exposure to and/or potential harm posed by the COVID-19 virus with having a surgery/procedure at this time versus the risk of delaying the surgery/procedure. It is not possible to know either the risk of delaying the surgery or procedure or chance of getting an infection with perfect accuracy, but a joint decision was made between the patient and the surgeon/proceduralist to proceed at this time with the scheduled surgery/procedure as indicated on the consent form.
--- NOTE | 2021-04-19 09:04 | CASEMGMT ---
According to the [facility] website, the following are in-network tertiary facilities: [facility], [place], [facility], [facility], [facility], and . Barbara LAWSON CM
--- NOTE | 2021-04-19 10:25 | CL.I_ITS ---
Patient Name: ALEX TRAN Study Date: 04/19/2021 Performing: Jermain Mar MD Ht: 59.84 inches 152 cm : 1935 Wt: 147.71 lbs 67 kg Age: 85 Gender: female BSA: 1.64 PROCEDURE(S) PERFORMED IC10-(73212)FFR, CORONARY OR GRAFT, INITIAL VESSEL CLINICAL PROFILE AND CO-MORBIDITIES Indications: ACS > 24 hrs, Suspected CAD, Cardiac Arrythmia Heart Failure: None Stress/Imaging Stress/Image Study Performed: No Angina Classification Anginal Classification w/in 2 Weeks: Anginal Equivalent Dyspnea CAD Presentations: Non-STEMI. CONCLUSIONS iFR in the LAD was 0.92 suggestive of a stenosis that can be treated medically at this time RECOMMENDATIONS DESCRIPTION OF PROCEDURE The patient arrived to the procedure lab. The risks and benefits of the procedure as well as a full d escription of our services here and current unavailability of surgical backup were fully explained to the patient and/or their significant other prior to the catheterization. The Timeout was completed, verifying the correct patient and procedure. The patient's procedural site was prepped and draped in the usual fashion. Local anesthetic was given subcutaneously to right radial region with Lidocaine 2% Using a modified Seldinger technique,arterial access was obtained via the right radial artery, a 6Fr sheath was inserted. Left Coronary Artery selective angiography was performed in multiple views usin g a 5 Fr. 4.0 Harvey catheter. Right Coronary Artery selective angiography was then performed in multi ple views using a 5 Fr. 4.0 Harvey catheter. Left Ventriculography was performed in BENTLEY projection usi ng a 5 Fr. Pigtail catheter. LV to AO pullback pressures were then recorded.The images were reviewed and options discussed. A decision was then made to proceed with an Intervention, IVUS o r other adjunct procedure. XB3 Guide catheter was inserted and engaged into the LCA. XB 3.0 Guide catheter was inserted and engaged into the LCA. The FFR/iFR wire was inserted in the LAD. Pressures and FFR/iFR were then recor ded. iFR measurements were performed. iFR Ratio: 0.92 The FFR/iFR wire was then removed. The arteri al sheath was pulled and a TR Band was applied for hemostasis. Sheath flushed prior to removal. 15cc air inserted. INTERVENTION INFORMATION LESION SITE: LAD (Mid) iFR in the LAD was 0.92 Lesion Devices: [employer] ( [employer]) Coronary FFR Wire Cardinal 6 Fr XB3.0 100cm Guide Catheter COMPLICATIONS No Complications PROCEDURE MEDICATIONS Fentanyl 50 mcg IV Versed 1 mg IV Oxygen: 2 L/min via nasal cannula Heparin 2000 unit(s) IV 04/19/2021 09:35:11 SUMMARY OF HEMODYNAMIC DATA Time AIR REST ECG 08:50:57 Art 192/87 (120) 09:02:54 AO 109/72 (90) SA 09:15:50 LV 146/-5, 20 09:24:22 LV 147/-8, 12 09:24:27 LV 151/-4, 19 09:25:11 LV 146/-4, 19 09:25:16 LVp 149/-3, 19 09:25:20 AOp 142/65 (95) 09:25:25 Signed By Jermain Mar MD On 04/19/2021 10:25:09 Jermain Mar MD
--- NOTE | 2021-04-19 10:56 | CL.D_ITS ---
Patient Name: ALEX TRAN Study Date: 04/19/2021 Performing: Rios Teran MD Ht: 59.84 inches 152 cm : 1935 Wt: 147.71 lbs 67 kg Age: 85 Gender: female BSA: 1.64 PROCEDURE(S) PERFORMED DC01-(17974)LHC/COR/LV IC10-(29032)FFR, CORONARY OR GRAFT, INITIAL VESSEL CLINICAL PROFILE AND INDICATIONS Indications: ACS > 24 hrs, Suspected CAD, Cardiac Arrythmia Heart Failure: None Stress/Imaging Stress/Image Study Performed: No Angina Classification Anginal Classification w/in 2 Weeks: Anginal Equivalent Dyspnea CAD Presentations: Non-STEMI. CONCLUSIONS Elevated Left Ventricular End Diastolic Pressure Normal LV size, wall motion,and systolic function LVEF: by LV gram 65 % Unga Multivessel CAD Mitral Valve Annular Calcification Moderate - Severe annular calcification RECOMMENDATIONS Medical therapy Referred for further interventional cardiology evaluation with FFR/IVUS and possible PCI DESCRIPTION OF PROCEDURE The patient arrived to the procedure lab. The risks and benefits of the procedure as well as a full d escription of our services here and current unavailability of surgical backup were fully explained to the patient and/or their significant other prior to the catheterization. The Timeout was completed, verifying the correct patient and procedure. The patient's procedural site was prepped and draped in the usual fashion. Local anesthetic was given subcutaneously to right radial region with Lidocaine 2% . Using a modified Seldinger technique, arterial access was obtained via the right radial artery, a 6 Fr sheath was inserted. Left Coronary Artery selective angiography was performed in multiple views u sing a 5 Fr. 4.0 [place] catheter. Right Coronary Artery selective angiography was then performed in mu ltiple views using a 5 Fr. 4.0 [place] catheter. Left Ventriculography was performed in BENTLEY projection using a 5 Fr. Pigtail catheter. LV to AO pullback pressures were then recorded.The arterial sheath was pulled and a TR Band was applied for hemostasis. Sheath flushed prior to removal. 15cc air inserted. CORONARY ANGIOGRAPHY DOMINANCE: Right Dominant LEFT HEART ASSESSMENT Left Ventricular Ejection Fraction: by LV Gram 65 % Normal LV wall motion Elevated Left Ventricular End Diastolic Pressure LVEDP: 12 mmHg LEFT ANTERIOR DESCENDING ARTERY: MID LAD: eccentric: somewhat hazy: 75 % Stenosis CIRCUMFLEX ARTERY: Angiographically normal RIGHT CORONARY ARTERY: Mild luminal irregularities MID RCA: diffuse: eccentric: 25 % Stenosis VALVE FINDINGS: Mitral Valve Calcification: Annular: Moderate - Severe AORTIC ROOT: Angiographically normal COMPLICATIONS No Complications PROCEDURE MEDICATIONS Fentanyl 50 mcg IV Versed 1 mg IV Oxygen: 2 L/min via nasal cannula Heparin 2000 unit(s) IV 04/19/2021 09:35:11 SUMMARY OF HEMODYNAMIC DATA Time AIR REST ECG 08:50:57 Art 192/87 (120) 09:02:54 AO 109/72 (90) SA 09:15:50 LV 146/-5, 20 09:24:22 LV 147/-8, 12 09:24:27 LV 151/-4, 19 09:25:11 LV 146/-4, 19 09:25:16 LVp 149/-3, 19 09:25:20 AOp 142/65 (95) 09:25:25 Signed By Rios Teran MD On 04/19/2021 10:55:09 Rios Teran MD
[2021-04-19] MEDS: 0.9% Normal Saline 1,000 ML 75 ML IV (13:47)
[2021-04-19] MEDS: Amiodarone 200 MG Tablet PO (13:48)
[2021-04-19] MEDS: amLODIPine 5 MG Tablet PO (13:48)
--- NOTE | 2021-04-19 14:10 | PCM.DC ---
Discharge Instructions Diet Discharge Diet: No restrictions Activity Discharge Activity: Return to Normal Activity Weight Bearing Status: Weight bearing as tolerated Dressing / Incision Call your doctor if you observe: Fever of 101 or Higher, Numbness or Tingling, Shortness of breath, Dizziness, Chest pain, Increased palpitations (irregular heartbeat) and Calf discomfort Follow Up Care Please Follow Up With: Primary care provider When: Within the next two weeks. Test Results: Test results from this visit will be discussed in further detail at your follow-up appointment, if applicable. Discharge Plan Admission Admit Date/Time: 04/17/21 21:15 Primary Reason for Your Visit: Atrial Fibrillation w/ RVR Attending Provider: Thomas Fischer Primary Care Provider: Art Hayward Consulting Providers: Enriqueta Yo Instructions Additional Instructions / Restrictions: * follow up with your Product Development Actuary, Dr. Hi, in [place] within the next two weeks. * A referral has been made to Dr. Teran for when you would like to transition Product Development Actuary's. Discharge Orders/Prescriptions Prescriptions: New metoprolol tartrate 100 mg Tablet 100 mg PO BID Qty: 60 RF: 0 amiodarone 200 mg Tablet 200 mg PO TID Qty: 30 RF: 0 amlodipine 5 mg Tablet 5 mg PO DAILY Qty: 30 RF: 0 aspirin 81 mg Tablet,Chewable 81 mg PO BREAKFAST Qty: 30 RF: 0 atorvastatin [Lipitor] 40 mg tablet 40 mg PO QHS Qty: 30 RF: 0 Continued irbesartan-hydrochlorothiazide 150-12.5 mg tablet 1 tab PO DAILY RF: 0 prednisone 20 mg tablet 20 mg PO BID RF: 0 levothyroxine 125 mcg Tablet 125 mcg PO DAILY RF: 0 tizanidine 4 mg Capsule 4 mg PO Q8H RF: 0 omeprazole 20 mg Tablet,Delayed Release (Dr/Ec) 20 mg PO DAILY RF: 0 Xarelto 20 mg tablet 20 mg PO DAILY RF: 0 Referrals / Follow Up: Art Hayward MD [Primary Care Provider] - Within 2 Weeks Rios Teran MD [STAFF PHYSICIAN] - See Referral Note (Referral made for when you would like to transition care from your current websphere portal architect. ) Disposition Disposition (needs filled in before D/C Order can be placed): Home, Self Care
--- NOTE | 2021-04-19 14:30 | CASEMGMT ---
RENNY PINEDA assessment: Face to face with pt for initial transition planning/care coordination assessment. RENNY PINEDA introduced self and role at [facility], pt voices understanding and consents to assessment. Pt sitting up in bed with sl. labored breathing and audible wheezing. Pt is on room air. Pt is A/Ox4 and answers questions appropriately. Pt's daughter is at bedside during assessment. Care providers, pharmacy, and demographics verified. Presentation: Pt c/o Afib today, with palpitations and SOB Admitting dx: Afib PCP: [facility] Specialists: [place], cardio at [facility]; [facility] cardio at [facility] Preferred Pharmacy: [facility] Insurance: AeR Prescription Benefit: AeR Living Will/HPOA: Pt states does have LW/HPOA and daughter states she brought copies in and place on chart. Pt's son, Dante Dean, is HPOA. LNOK: Dante Dean, son/HPOA; Paul Dean, daughter Living Arrangements: Pt states lives with cats in 1 story home with laundry in basement and states no concerns at home. Pt is independent with ADL's. Transportation: Pt states drives self and states no transportation concerns. DME/HHC: Pt states no current DME or need for any further DME. Pt states no hx of HHC or SNF. Pt states no concerns with going home at time of discharge. Pt is retired. Pt states does not smoke cigarettes or drink ETOH. Pt states no further concerns/needs. CM to follow for any further discharge planning/needs. Advised pt to ask for CM if any further questions/concerns/needs arise, voices understanding. Pt Goal: Home Plan[place] RENNY PINEDA
--- NOTE | 2021-04-19 15:36 | DS.PCM_ITS ---
Documented by User: Jorge BELL 04/19/21 15:47 Providers Date of Admission: 04/17/21 Primary Care Physician: Dr. Art Hayward MD Consultations 04/18/21 10:32 Consult: Cardiology Routine Consulting Provider: Enriqueta Yo Reason for Consult: NSTEMI EMERGENT Consult: No MD Notified: Yes Date Notified: 04/18/21 Time Notified: 10:32 Method of Notification: Text Reason For Visit: ATRIAL FIBRILLATION Diagnosis Discharge Diagnosis (1) Elevated troponin: Status: Acute Code(s): R77.8 - Other specified abnormalities of plasma proteins (2) Atrial fibrillation with RVR: Status: Acute Code(s): I48.91 - Unspecified atrial fibrillation (3) HTN (hypertension): Status: Chronic Code(s): I10 - Essential (primary) hypertension Medications at Discharge Home Medications Xarelto 20 mg PO DAILY 04/17/21 irbesartan-hydrochlorothiazide 1 tab PO DAILY 04/17/21 levothyroxine 125 mcg PO DAILY 04/17/21 omeprazole 20 mg PO DAILY 04/17/21 prednisone 20 mg PO BID 04/17/21 tizanidine 4 mg PO Q8H 04/17/21 amiodarone 200 mg PO TID #30 tab 04/19/21 amlodipine 5 mg PO DAILY #30 tab 04/19/21 aspirin 81 mg PO BREAKFAST #30 tab 04/19/21 atorvastatin [Lipitor] 40 mg PO QHS #30 tab 04/19/21 metoprolol tartrate 100 mg PO BID #60 tab 04/19/21 Hospital Course Procedures 2-D Echocardiogram, Cardiac catheterization and Transthoracic echo Summary of Care Provided Minutes Spent on Discharge: 25 Hospital Course: Patient is an 85-year-old female who was admitted to the hospital on 04/17/2021 with a chief complaint of heart palpitations. Patient was admitted for evaluation management of atrial fibrillation with RVR and elevated troponins. 1) A. fib with RVR Patient is currently maintaining normal sinus rhythm. Rate is currently cont rolled on oral diltiazem and metoprolol. Cardizem drip discontinued this morning, per cardiology recommendations. TSH within normal limits, magnesium ordered/pending, potassium within normal limits. Echocardiogram on 04/19/2021 demonstrated a hyperdynamic left ventricle, an estimated EF of 75%, moderate concentric LVH, moderate to severe mitral annular calcification RVSP of 37 mmHg, with evidence of diastolic dysfunction. EF is preseved when compared to last study. Patient has been seen by cardiology and recommendations are as follows: Initiate amiodarone and metoprolol for rate control, and continue with Xarelto for anticoagulation. 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 A referral has been made to Dr. Teran and patient wishes to transition care. 2) NSTEMI High-sensitivity troponins elevated at 144, 1562 and 1639 respectively. Patient underwent cardiac catheterization which revealed normal LV size, wall motion and systolic function, an EF of 65%, havasupai multivessel CAD with moderate to severe mitral valve annular calcification. Patient was referred to interventional cardiology for PCI. Recommendations are to continue with medical management to include initiate aspirin, statin, metoprolol, amiodarone, am lodipine and continue Xarelto. 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 A referral has been made to Dr. Teran and patient wishes to transition care. 3) hypothyroidism TSH within normal limits, as above. Continue home Synthroid. 4) HTN Continue home BP regimen with additions as above. 5) chronic back pain Stable, continue tizanidine. 6) GERD Continue Protonix. above. Patient seen by Jorge De Jesus PA-C, under the supervision of Dr. Fischer. Time spent on patient care: 25 minutes. Physical Exam Narrative Patient is an 85-year-old female comfortably resting in bed, alert and orient x3. Denies development of any new symptoms overnight. Does not appear in acute distress. Const alert, oriented x3 and no apparent distress HEENT normocephalic, head/scalp atraumatic and hearing grossly normal bilaterally Eyes PERRL, EOMs intact bilaterally and conjunctivae normal Neck no lymphadenopathy, supple and no JVD Resp normal respiratory effort, no retractions, no use of accessory muscles and clear to auscultation bilaterally Cardio regular rate, regular rhythm, no murmurs and no JVD GI normal to inspection, nondistended, normoactive bowel sounds, soft to palpation and non-tender Extremity normal to inspection, full ROM and no clubbing, cyanosis or edema Skin no rashes or lesions noted, no wounds and skin turgor normal Neuro CN's II-XII intact bilaterally Psych affect normal Weight / BMI Weight Weight: 146 lb 9.718 oz Body Mass Index (BMI) 28.6 ABG / Lab / Microbiology Data Result Diagrams: 04/19/21 04:04 04/19/21 04:04 Laboratory: Laboratory Results - last 24 hr 04/18/21 20:50: APTT 44.9 H 04/19/21 04:04: WBC 10.7, RBC 3.22 L, Hgb 11.5 L, Hct 33.7 L, MCV 104.7 H, MCH 35.7 H, MCHC 34.1 D, RDW Std Deviation 50.5 H, RDW Coeff of Yifan 13.2, Plt Count 326, MPV 10.3, Immature Gran % (Auto) 2.800 H, Neut % (Auto) 66.6, Lymph % (Auto) 23.4, [place] % (Auto) 4.7, Eos % (Auto) 1.9, Baso % (Auto) 0.6, Absolute Neuts (auto) 7.1, Absolute Lymphs (auto) 2.49, Nucleated RBC % 0 04/19/21 04:04: Sodium 139, Potassium 3.8, Chloride 105, Carbon Dioxide 27.0, Anion Gap 7, BUN 26 H, Creatinine 0.91, Estim Creat Clear Calc 31.88, Est GFR (MDRD) Af Amer 75, Est GFR (MDRD) Non-Af 62, BUN/Creatinine Ratio 28.6 H, Glucose 109 H, Calcium 9.1 04/19/21 04:04: APTT 105.3 H* Radiography Diagnostic Testing: Radiology Impression Echocardiogram 04/17/21 19:09 Interpretation Summary Left ventricular systolic function is hyperdynamic. The estimated ejection fraction is 75 %. Moderate concentric left ventricular hypertrophy. Apical false tendon noted. There is moderate to severe mitral annular calcification. Extension of the mitral annular calcification onto the posterior mitral valve leaflet. Mild focal mitral valve calcification of the anterior leaflet. The mitral papillary muscle appears thickened and/or calcified. Mild (1+) eccentric mitral valve insufficiency. Mild to moderate (1-2+) tricuspid valve insufficiency. Mild focal aortic valve calcification. Mild (1+) pulmonic valve insufficiency. Right ventricular systolic pressure estimated to be 37 mmHg. There is evidence of diastolic dysfunction. Comment: Late peaking spectral Doppler pattern in the mid LV cavity approaching 3 m/s (peak gradient 36 mmHg) appearing compatible with a hyperdynamic state. Ordering Physician: Ulisses Carballo Referring Physician: Art Hayward Performed By: Renata Valladares, ODALYS, RVT D/C Instructions Discharge Diet: No restrictions Weight Bearing Status: Weight bearing as tolerated Call your doctor if you observe: Fever of 101 or Higher, Numbness or Tingling, Shortness of breath, Dizziness, Chest pain, Increased palpitations (irregular heartbeat) and Calf discomfort Please Follow Up With: Primary care provider When: Within the next two weeks. Meaningful Use Info Meaningful Use Diagnoses (Choose all that apply): AMI AMI/Post PCI/Angioplasty Aspirin given w/in 24hrs of arrival?: Yes ASA at discharge?: Yes Statins at discharge?: Yes Jeovanny/ARB at discharge?: Yes Beta Jorge at discharge?: Yes Done w/ Acute DE measure.: Yes Documented LVEF (%): 65 Discharge Plan Admission Admit Date/Time: 04/17/21 21:15 Primary Reason for Your Visit: Atrial Fibrillation w/ RVR Attending Provider: Thomas Fischer Primary Care Provider: Art Hayward Consulting Providers: Enriqueta Yo Instructions Additional Instructions / Restrictions: * follow up with your Director Records Management, Dr. Hi, in [place] within the next two weeks. * A referral has been made to Dr. Teran for when you would like to transition Director Records Management's. Discharge Orders/Prescriptions Prescriptions: New metoprolol tartrate 100 mg Tablet 100 mg PO BID Qty: 60 RF: 0 amiodarone 200 mg Tablet 200 mg PO TID Qty: 30 RF: 0 amlodipine 5 mg Tablet 5 mg PO DAILY Qty: 30 RF: 0 aspirin 81 mg Tablet,Chewable 81 mg PO BREAKFAST Qty: 30 RF: 0 atorvastatin [Lipitor] 40 mg tablet 40 mg PO QHS Qty: 30 RF: 0 Continued irbesartan-hydrochlorothiazide 150-12.5 mg tablet 1 tab PO DAILY RF: 0 prednisone 20 mg tablet 20 mg PO BID RF: 0 levothyroxine 125 mcg Tablet 125 mcg PO DAILY RF: 0 tizanidine 4 mg Capsule 4 mg PO Q8H RF: 0 omeprazole 20 mg Tablet,Delayed Release (Dr/Ec) 20 mg PO DAILY RF: 0 Xarelto 20 mg tablet 20 mg PO DAILY RF: 0 Referrals / Follow Up: Art Hayward MD [Primary Care Provider] - Within 2 Weeks Rios Teran MD [STAFF PHYSICIAN] - See Referral Note (Referral made for when you would like to transition care from 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 ) Disposition Disposition (needs filled in before D/C Order can be placed): Home, Self Care Documented by User: Dr. Thomas Fischer MD 04/19/21 15:55 Providers Date of Admission: 04/17/21 Reason For Visit: ATRIAL FIBRILLATION Medications at Discharge Home Medications Xarelto 20 mg PO DAILY 04/17/21 irbesartan-hydrochlorothiazide 1 tab PO DAILY 04/17/21 levothyroxine 125 mcg PO DAILY 04/17/21 omeprazole 20 mg PO DAILY 04/17/21 prednisone 20 mg PO BID 04/17/21 tizanidine 4 mg PO Q8H 04/17/21 amiodarone 200 mg PO TID #30 tab 04/19/21 amlodipine 5 mg PO DAILY #30 tab 04/19/21 aspirin 81 mg PO BREAKFAST #30 tab 04/19/21 atorvastatin [Lipitor] 40 mg PO QHS #30 tab 04/19/21 metoprolol tartrate 100 mg PO BID #60 tab 04/19/21 Hospital Course Summary of Care Provided Minutes Spent on Discharge: 30 Hospital Course: This patient was seen in conjunction with Jorge De Jesus PA-C. I have independently interviewed and examined the patient and reviewed pertinent historical, laboratory, and other data. Please refer to Jorge De Jesus PA-C's note for details of this patient's presentation, findings, and recommendations. I have reviewed Jorge De Jesus PA-C's note and concur with documented findings. In brief, patient is a an 85-year-old lady admitted with A. fib with RVR. Patient was found to have elevated troponin. Admitted to monitored bed for subsequent management. As part of patient management patient underwent left heart catheterization which did not demonstrate any hemodynamically obstructive lesions. Optimization of medical therapy was recommended by cardiology Physical Examination: GENERAL: cooperative HEENT: Atraumatic; EYES; Anicteric, Normal Conjunctiva NECK; supple, normal thyroid, RESPIRATORY: Diminished to auscultation CARDIOVASCULAR: Regular S1 S2, GI: soft, normoactive bowel sounds, : No Renal angle tenderness; EXTREMITIES: No edema, no clubbing, MUSCULOSKELETAL: no muscle waisting NEURO: Awake; no lateralizing signs. SKIN: No Rash PSYCH; Flat affect Assessment: 1. A. fib with RVR 2. Acute non-STEMI type II secondary to demand ischemia 3. Hypothyroidism 4. Hypertension 5. GERD 6. Chronic back pain 7. DVT prophylaxis Hospital course; as documented above Total time spent reviewing patient's chart going over medications discussing with patient and her daughter as well as other providers involved in patient care; 30 minutes ABG / Lab / Microbiology Data Result Diagrams: 04/19/21 04:04 04/19/21 04:04 Discharge Plan Admission Admit Date/Time: 04/17/21 21:15 Primary Reason for Your Visit: Atrial Fibrillation w/ RVR Attending Provider: Thomas Fischer Primary Care Provider: Art Hayward Consulting Providers: Enriqueta Yo Instructions Additional Instructions / Restrictions: * follow up with your Director Records Management, Dr. Hi, in [place] within the next two weeks. * A referral has been made to Dr. Teran for when you would like to transition Director Records Management's. Discharge Orders/Prescriptions Prescriptions: New metoprolol tartrate 100 mg Tablet 100 mg PO BID Qty: 60 RF: 0 amiodarone 200 mg Tablet 200 mg PO TID Qty: 30 RF: 0 amlodipine 5 mg Tablet 5 mg PO DAILY Qty: 30 RF: 0 aspirin 81 mg Tablet,Chewable 81 mg PO BREAKFAST Qty: 30 RF: 0 atorvastatin [Lipitor] 40 mg tablet 40 mg PO QHS Qty: 30 RF: 0 Continued irbesartan-hydrochlorothiazide 150-12.5 mg tablet 1 tab PO DAILY RF: 0 prednisone 20 mg tablet 20 mg PO BID RF: 0 levothyroxine 125 mcg Tablet 125 mcg PO DAILY RF: 0 tizanidine 4 mg Capsule 4 mg PO Q8H RF: 0 omeprazole 20 mg Tablet,Delayed Release (Dr/Ec) 20 mg PO DAILY RF: 0 Xarelto 20 mg tablet 20 mg PO DAILY RF: 0 Referrals / Follow Up: Art Hayward MD [Primary Care Provider] - Within 2 Weeks Rios Teran MD [STAFF PHYSICIAN] - See Referral Note (Referral made for when you would like to transition care from 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 ) Disposition Disposition (needs filled in before D/C Order can be placed): Home, Self Care Charges/Coding Visit Charges Inpatient E&M: 74315 Disch Hosp Hospital Course Consultations Consultations: Consultations 04/18/21 10:32 Consult: Cardiology Routine Consulting Provider: Enriqueta Yo Reason for Consult: NSTEMI EMERGENT Consult: No MD Notified: Yes Date Notified: 04/18/21 Time Notified: 10:32 Method of Notification: Text
--- NOTE | 2021-04-19 16:10 | CASEMGMT ---
Per Shell LAWSON, pt does not qualify for home oxygen at this time. Pt ready for d/c. Barbara LAWSON CM
== END 2021-04-19 16:45 | disposition home or self-care (01) | DRG 281 ==
LOC: ED 18:44 → PCU 21:38
PROVIDERS: Internal Medicine; Physician Assistant; Admitting Provider Hospitalist; Emergency Provider Emergency Medicine; PCP Internal Medicine; Visit Provider Internal Medicine
DX: I48.91 Unspecified atrial fibrillation (principal); I21.4 Non-ST elevation (NSTEMI) myocardial infarction; I24.8 Other forms of acute ischemic heart disease; E03.9 Hypothyroidism, unspecified; I10 Essential (primary) hypertension; I25.10 Atherosclerotic heart disease of native coronary artery without angina pectoris; M19.90 Unspecified osteoarthritis, unspecified site; K21.9 Gastro-esophageal reflux disease without esophagitis; M54.9 Dorsalgia, unspecified; I08.3 Combined rheumatic disorders of mitral, aortic and tricuspid valves; I16.0 Hypertensive urgency; Z79.82 Long term (current) use of aspirin; G89.29 Other chronic pain; Z79.01 Long term (current) use of anticoagulants; R77.8 Other specified abnormalities of plasma proteins; R01.1 Cardiac murmur, unspecified; Z79.52 Long term (current) use of systemic steroids; Z79.899 Other long term (current) drug therapy; Z79.890 Hormone replacement therapy
CPT/HCPCS: 36415; 71045; 80048; 80061; 83735; 84443; 84484; 85025; 85610; 85730; 93005; 93306; 93458; 93571; 96361; 96365; 96366; 96375; 96376; 97802; 99152; 99153; 99221; 99285; J7030; Q9967; A4216; C1769; C1887; C1894; G0378

== ENCOUNTER 2021-06-08 15:06 | Outpatient (CLI) | payer MEDICARE, SELFPAY ==
--- NOTE | 2021-06-08 08:45 | BONBX_PTH ---
PATIENT: ALEX TRAN LOC: [facility] U#:[id number] AGE/SX: 85/F ROOM: RE06/08/[address]: Dr. Troy Ingram DO : 1935 BED: DIS: 06/08/2021 SPEC #: [id number] RECD: 06/08/21 15:00 STATUS: MIKAL RESheryl #: [id number] LEONARD: 06/08/21 08:[address]: Troy Ingram DEPT: SURGICAL PATHOLOGY RECD BY: Kimberly Mon ENTERED: 06/09/21 08:57 SP TYPE: Bone OTHR DR: Dr. Art Hayward MD [facility] Tissues: Vertebra, NOS Procedures: Decalcification bone/plaque Surgery Specimen Level V HEADER OPERATION: T12 kyphoplasty PRE-OP DIAGNOSIS: Wedge compression fracture T11-T12 vertebra TISSUE SUBMITTED: T12 vertebral body MICROSCOPIC DIAGNOSIS T12 vertebral body, bone biopsy: Reparative and reactive change. No evidence of malignancy. AM:steven 06/10/2021 MICROSCOPIC DESCRIPTION Slides are reviewed. GROSS DESCRIPTION Received in fixative is one container labeled with the patient's name and designated T12 vertebral body. The specimen consists of an elongated piece of bone measuring 1 cm in length and 0.1 cm in diameter. The specimen is totally submitted in one cassette after decalcification. / SJ:steven 06/09/2021 TC:5 CPT: 89560, 24476
== END 2021-06-08 23:59 | disposition home or self-care (01) ==
LOC: LABSPEC 15:17
PROVIDERS: PCP Internal Medicine; Referring Provider Orthopaedic Surgery; Visit Provider Orthopaedic Surgery
DX: M48.54XA Collapsed vertebra, not elsewhere classified, thoracic region, initial encounter for fracture (principal)
CPT/HCPCS: 88307; 88311

== ENCOUNTER 2021-07-18 13:19 | Observation (INO) | payer MEDICARE, SELFPAY ==
[2021-07-18] VITALS (13 sets, daily range): BP systolic 112–162; BP diastolic 55–85; PULSE 79–105; RESP 16–18; TEMP 36.2–37.4; O2SAT 90–99; BMI 27.4; BMI 28.2
--- NOTE | 2021-07-18 13:38 | CT_ITS ---
HISTORY: abdominal pain. TECHNIQUE: Helically acquired images were obtained of the abdomen and pelvis with IV contrast. A radiation dose optimization technique was used for this scan. IV Contrast dosage and agent: 100mL [id number] IV. Oral contrast: None. # of images incl. paperwork: 367. COMPARISON: None. FINDINGS: LOWER CHEST: Lung bases clear. BOWEL: Bowel nondilated. No periappendiceal inflammation. Colonic diverticulosis without inflammation. LIVER/SPLEEN/PANCREAS: No enhancing masses. GALLBLADDER/BILIARY TREE: Gallbladder present. KIDNEYS: No hydronephrosis. Small bilateral cysts. ADRENAL GLANDS: No nodules. VESSELS: No abdominal aortic aneurysm. Advanced atherosclerosis of the abdominal aorta and its major branches. Varices noted in the left upper quadrant. PELVIC ORGANS: Absent uterus. Mild bladder wall thickening. ABDOMINAL WALL: Moderate paraumbilical hernia containing thick walled transverse colon with mild edema and peritoneal fluid in the hernia sac. BONES: Chronic T12 compression fracture with vertebroplasty. Chronic L1 compression fracture. Moderate thoracolumbar dextroscoliosis. Degenerative change. CT/Abdomen/Pelvis W IV Cont ONLY IMPRESSION: Paraumbilical hernia containing thick walled transverse colon with mild edema in the hernia sac, concerning for strangulated hernia without evidence for colonic obstruction. Colonic diverticulosis without acute diverticulitis. Small renal cysts. Mild bladder wall thickening, likely sequela of cystitis. Individualized dose optimization techniques were used for this CT. at 1459 Reported and signed by: Latosha Goodman MD Electronically Signed: Latosha Goodman MD at 14:58 EDT ,
--- NOTE | 2021-07-18 13:40 | EDS_ITS ---
HPI HPI - GI History of Present Illness Chief Complaint: Abd Pain Narrative Narrative: 86-year-old female presenting with abdominal pain. She describes it as lower in the abdomen radiating across from left to right. She denies constipation and had a bowel movement this morning. She has not had any loose stool. Patient is on Xarelto for history of atrial fibrillation and denies black or bloody stools. She denies fever, chills. She has no urinary or vagina l complaints. Patient states the pain began acutely this morning when she woke up. She states she had a bowl Cheerios which was not atypical for her. Patient's only abdominal surgery was a hysterectomy. She does have history of ventral hernia around her umbilicus. She was told that if this does not bother her it is fine. She has not had a surgical consult as she was told this by her tso after her hysterectomy. [facility] Medical History Atherosclerotic heart disease of [place] coronary artery without angina pectoris Atrial fibrillation Atrial fibrillation with RVR Chronic pain Elevated troponin Essential hypertension GERD (gastroesophageal reflux disease) History of non-ST elevation myocardial infarction (NSTEMI) HTN (hypertension) Hypertension Hypothyroidism Syncope Home Medications Xarelto 20 mg PO DAILY 04/17/21 [History Last Taken 04/16/21] levothyroxine 125 mcg PO DAILY 04/17/21 [History Last Taken 04/17/21] omeprazole 20 mg PO DAILY 04/17/21 [History Last Taken 04/17/21] atorvastatin [Lipitor] 40 mg PO QHS #30 tab 04/19/21 [Rx Last Taken Unknown] amlodipine 2.5 mg tablet 2.5 mg PO QHS #30 tab 04/23/21 [Rx Last Taken Unknown] irbesartan 150 mg-hydrochlorothiazide 12.5 mg tablet 1 tab PO QAM #90 tab 04/29/21 [Rx Last Taken Unknown] acetaminophen 500 mg tablet 500 mg PO Q8H PRN tab 07/15/21 [History Last Taken Unknown] calcium carbonate 600 mg-vitamin D3 12.5 mcg (500 unit) capsule 1 cap PO DAILY cap 07/15/21 [History Last Taken Unknown] tramadol 50 mg tablet 50 mg PO DAILY PRN 07/15/21 [History Last Taken Unknown] Allergy/AdvReac Type Severity Reaction Status Date / Time No Known Allergies Allergy Verified 07/18/21 13:20 Family History Mother Congestive heart failure Surgical History History of carpal tunnel surgery History of hysterectomy History of kyphoplasty History of left heart catheterization (~04/19/21) History of tonsillectomy Social History Smoking Status: Never smoker alcohol intake: never substance use type: does not use caffeine: No ROS ROS ED Constitutional Constitutional ED: Denies chills or fever(s) ENT ENT ED: Denies rhinorrhea or sore throat Cardiovascular Cardiovascular: Denies chest pain or palpitations Respiratory/Chest Respiratory/Chest: Denies cough, dyspnea or sputum Gastrointestinal Gastrointestinal: Reports abdominal pain; Denies constipation, diarrhea, nausea or vomiting Genitourinary Genitourinary ED: Denies dysuria or hematuria Musculoskeletal Musculoskeletal: Denies arthralgias, back pain, myalgias or neck pain Integumentary Denies rash Neurologic Neurologic: Denies headache(s) or paresthesias Psychiatric Psychiatric: Denies anxiety or depression EXAM Physical Exam Const Vital Signs: 07/18/21 13:20 07/18/21 15:02 Temperature 97.1 F L Temperature Source Temporal Pulse Rate 92 79 Respiratory Rate 16 Blood Pressure 162/85 H 158/82 H Blood Pressure Mean 110 107 Pulse Ox 97 98 Oxygen Delivery Method Room Air Room Air Positive well nourished General Appearance ED: NAD; Negative for pallor HEENT normocephalic and atraumatic Eyes PERRL and EOMs intact bilaterally General Eye ED: Negative for pale conjunctiva or scleral icterus Resp normal respiratory effort and clear to auscultation bilaterally Cardio regular rate and regular rhythm GI non-distended Palpation: soft and tender LLQ and RLQ Back/Spine no CVA tenderness Neuro CN's II-XII intact bilaterally and moves all extremities Sensorium / Orientation: alert, oriented to person, oriented to place, oriented to time and orientation impaired Psych mental status grossly normal and thought process normal Skin General Skin Exam: Negative for jaundice or pallor Lesions: no lesions Rashes: no rashes MDM MDM MDM Narrative Medical decision making narrative: Patient given morphine, Zofran, IV fluids. Blood work is obtained and shows no leukocytosis. White blood cell count is 9.2. Hemoglobin stable 11.1. Platelet count 294.. Renal function and electrolytes within normal limits with exception of a potassium of 3.4. AST 81, ALT 119, alkaline phosphatase 302. She has no right upper quadrant pain. On my examination she does have tenderness around her hernia site. I obtained a CT of the abdomen pelvis which shows a periumbilical hernia containing thick walled transverse colon with mild edema in the hernia sac, concerning for strangulated hernia without evidence for colonic obstruction. Lactic acid was ordered. Patient discussed with Dr. Persaud who is on-call for surgery. She will come and evaluate the patient. Patient offered repeat medication for pain and she declines. Patient evaluated by Dr. Persaud and Dr. Wilkins felt that she needed to go to the OR for surgery. Lactic acid returned within normal limits. Patient given a dose of IV Zosyn prior to transfer. Patient transported in stable condition. Impression: 1. Abdominal pain 2. Strangulated ventral hernia Lab Data Attestation: I reviewed the patient's lab results. Labs: Laboratory Results - last 24 hr 07/18/21 07/18/21 07/18/21 13:50 13:50 14:20 WBC 9.2 RBC 3.17 L Hgb 11.1 L Hct 32.6 L MCV 102.8 H MCH 35.0 H MCHC 34.0 RDW Std Deviation 50.2 H RDW Coeff of Yifan 13.2 Plt Count 294 MPV 10.4 Immature Gran % (Auto) 0.800 Neut % (Auto) 82.0 H Lymph % (Auto) 10.0 L [place] % (Auto) 5.5 Eos % (Auto) 1.4 Baso % (Auto) 0.3 Absolute Neuts (auto) 7.5 Absolute Lymphs (auto) 0.92 Nucleated RBC % 0 Sodium 136 Potassium 3.4 L Chloride 104 Carbon Dioxide 26.0 Anion Gap 6 BUN 16 Creatinine 0.84 Estim Creat Clear Calc 33.89 Est GFR (MDRD) Af Amer 82 Est GFR (MDRD) Non-Af 68 BUN/Creatinine Ratio 19.0 Glucose 167 H Lactic Acid Calcium 9.3 Total Bilirubin 0.70 AST 81 H ALT 119 H Alkaline Phosphatase 302 H Total Protein 7.3 Albumin 3.8 Globulin 3.5 Albumin/Globulin Ratio 1.1 Lipase 117 Urine Color Yellow Urine Clarity Clear Urine pH 6.5 Ur Specific [place] 1.010 Urine Protein Negative Urine Glucose (UA) Normal Urine Ketones Negative Urine Occult Blood Negative Urine Nitrite Negative Urine Bilirubin Negative Urine Urobilinogen Normal Ur Leukocyte Esterase Negative Urine RBC 0 SEEN Urine WBC 0 SEEN Ur Squamous Epith Cells 0 SEEN Urine Bacteria 0 SEEN Urine Mucus 0 SEEN 07/18/21 15:30 WBC RBC Hgb Hct MCV MCH MCHC RDW Std Deviation RDW Coeff of Yifan Plt Count MPV Immature Gran % (Auto) Neut % (Auto) Lymph % (Auto) [place] % (Auto) Eos % (Auto) Baso % (Auto) Absolute Neuts (auto) Absolute Lymphs (auto) Nucleated RBC % Sodium Potassium Chloride Carbon Dioxide Anion Gap BUN Creatinine Estim Creat Clear Calc Est GFR (MDRD) Af Amer Est GFR (MDRD) Non-Af BUN/Creatinine Ratio Glucose Lactic Acid 1.7 Calcium Total Bilirubin AST ALT Alkaline Phosphatase Total Protein Albumin Globulin Albumin/Globulin Ratio Lipase Urine Color Urine Clarity Urine pH Ur Specific [place] Urine Protein Urine Glucose (UA) Urine Ketones Urine Occult Blood Urine Nitrite Urine Bilirubin Urine Urobilinogen Ur Leukocyte Esterase Urine RBC Urine WBC Ur Squamous Epith Cells Urine Bacteria Urine Mucus Radiography Diagnostic Testing: Clinical Impression(s) from Imaging Studies Abdomen/Pelvis CT 07/18/21 13:38 IMPRESSION: Paraumbilical hernia containing thick walled transverse colon with mild edema in the hernia sac, concerning for strangulated hernia without evidence for colonic obstruction. Colonic diverticulosis without acute diverticulitis. Small renal cysts. Mild bladder wall thickening, likely sequela of cystitis. Individualized dose optimization techniques were used for this CT. at 1459 Reported and signed by: Latosha Goodman MD Electronically Signed: Latosha Goodman MD at 14:58 EDT Reading Location ID and State: [facility] / [place] Tel , Service support , Discharge Plan Triage Chief Complaint: Abd Pain ED Provider: Yonatan Cruz Dx/Rx/DC Orders Prescriptions: No Action calcium carbonate-vitamin D3 [Calcium 600 with Vitamin D3] 600 mg-12.5 mcg (500 unit) capsule 1 cap PO DAILY RF: 0 acetaminophen 500 mg tablet 500 mg PO Q8H PRNRF: 0 tramadol 50 mg tablet 50 mg PO DAILY PRNRF: 0 levothyroxine 125 mcg Tablet 125 mcg PO DAILY RF: 0 omeprazole 20 mg Tablet,Delayed Release (Dr/Ec) 20 mg PO DAILY RF: 0 Xarelto 20 mg tablet 20 mg PO DAILY RF: 0 atorvastatin [Lipitor] 40 mg tablet 40 mg PO QHS Qty: 30 RF: 0 amlodipine 2.5 mg tablet 2.5 mg PO QHS Qty: 30 RF: 11 irbesartan-hydrochlorothiazide 150-12.5 mg tablet 1 tab PO QAM Qty: 90 RF: 3 Primary Care Provider: Art Hayward
[2021-07-18] MEDS: Ondansetron 4 MG/2 ML Vial IV (13:48)
[2021-07-18] MEDS: Morphine 4 MG/ML Syringe IV (13:48)
[2021-07-18] MEDS: 0.9% Normal Saline 1,000 ML 1000 ML IV (13:48)
[2021-07-18 14:00] LABS: Absolute Lymphocyte Count 0.92 X10^3/uL (0.83-4.51); Absolute Neutrophil Count 7.5 X10^3/uL (2.0-7.7); Basophil# 0.03 X10^3/uL; Basophil% 0.3 % (0-1); Eosinophil# 0.13 X10^3/uL; Eosinophils% 1.4 % (0-5); Hematocrit 32.6 % (37-47); Hemoglobin 11.1 g/dL (12.0-15.0); Lymphocyte # 0.92 X10^3/ul (0.83-4.51); Mean Corpuscular Volume 102.8 fL (81-99); Mean Platelet Vol. 10.4 fl (6.2-12.0); Monocyte# 0.51 X10^3/uL; Monocyte% 5.5 % (0-10); NRBC Flagged by Analyzer 0 % (0-5); Neutrophil # 7.54 X10^3/uL (2.7-7.7); Platelet Count 294 K/mm3 (150-450); RBC Distribution Width CV 13.2 % (11.6-14.6); RBC Distribution Width SD 50.2 fl (35.1-43.9); Red Blood Count 3.17 M/mm3 (4.2-5.4); White Blood Count 9.2 K/mm3 (4.4-11.0)
[2021-07-18 14:17] LABS: ALB/GLOB Ratio 1.1 RATIO (0.9-2.4); AST(SGOT) 81 U/L (15-37); Alanine Aminotransfer ALT/SGPT 119 U/L (13-56); Albumin, Serum 3.8 g/dL (3.2-5.0); Alkaline Phosphatase 302 U/L (45-117); Anion Gap 6 (5-15); BUN 16 mg/dL (7-18); Calcium,Total 9.3 mg/dL (8.5-10.1); Chloride 104 mmol/L (98-107); Creatinine, Serum 0.84 mg/dL (0.55-1.02); EST Glomerular Filtration Rate 68 mL/min (>60); Est Glom Filt Rate - Afr Amer 82 mL/min (>60); Estimated Creatinine Clearance 33.89 ml/min; Globulin 3.5 g/dL (2.2-4.2); Glucose 167 mg/dL (74-106); Lipase 117 U/L (73-393); Potassium 3.4 mmol/L (3.5-5.1); Protein, Total 7.3 g/dL (6.4-8.2); Sodium Level 136 mmol/L (136-145)
[2021-07-18 14:25] LABS: Bacteria 0 SEEN /hpf (None Seen); Mucous, Urine 0 SEEN /hpf (<or=2+); Red Blood Cells-Urine 0 SEEN /hpf (0-5); Squamous Epithelial Cells - UA 0 SEEN /hpf (5-10); White Blood Cells 0 SEEN /hpf (0-5)
[2021-07-18 14:26] LABS: Color, Urine Yellow (Yellow); Glucose, Dipstick Normal (Normal); Ketone-Dipstick Negative (Negative); Leukocyte Esterase-Dipstick Negative /ul (Negative); Nitrite-Dipstick Negative (Negative); Occult Blood-Urine Negative /ul (Negative); Protein-Dipstick Negative (Negative); Urine Bilirubin Dipstick Negative (Negative); Urine Clarity Clear (Clear); Urine Urobilinogen Normal (Normal); Urine pH 6.5 (5.0 - 8.0)
[2021-07-18 16:00] LABS: Lactic Acid 1.7 mmol/L (0.4-1.9)
--- NOTE | 2021-07-18 16:14 | HP.PCM.SX_ITS ---
HPI - General HPI Narrative ALEX TRAN, is a 86 F who presents with abdominal pain. This has been present since yesterday evening. She has had nausea. She has a previous lower midline incision from a hysterectomy that was done years ago. She has a known incisional hernia from this, noted for years. No previous hernia surgery She last had a bowel movement this morning. She states that she last passed flatus yesterday. She denies fevers. Evaluation in the ED - normal WBC but with left shift of differential, elevated AST/ALT/Alk phos but normal tbili. CT scan revealed segment of transverse colon herniated with surrounding inflam mation. [facility] Medical History (Updated 07/18/21 @ 16:[address] 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 Syncope Home Medications Xarelto 20 mg PO DAILY 04/17/21 [History Last Taken 04/16/21] levothyroxine 125 mcg PO DAILY 04/17/21 [History Last Taken 04/17/21] omeprazole 20 mg PO DAILY 04/17/21 [History Last Taken 04/17/21] atorvastatin [Lipitor] 40 mg PO QHS #30 tab 04/19/21 [Rx Last Taken Unknown] amlodipine 2.5 mg tablet 2.5 mg PO QHS #30 tab 04/23/21 [Rx Last Taken Unknown] irbesartan 150 mg-hydrochlorothiazide 12.5 mg tablet 1 tab PO QAM #90 tab 04/29/21 [Rx Last Taken Unknown] acetaminophen 500 mg tablet 500 mg PO Q8H PRN tab 07/15/21 [History Last Taken Unknown] calcium carbonate 600 mg-vitamin D3 12.5 mcg (500 unit) capsule 1 cap PO DAILY cap 07/15/21 [History Last Taken Unknown] tramadol 50 mg tablet 50 mg PO DAILY PRN 07/15/21 [History Last Taken Unknown] Allergy/AdvReac Type Severity Reaction Status Date / Time No Known Allergies Allergy Verified 07/18/21 13:20 Family History Mother Congestive heart failure Surgical History History of carpal tunnel surgery History of hysterectomy History of kyphoplasty History of left heart catheterization (~04/19/21) History of tonsillectomy Social History Smoking Status: Never smoker alcohol intake: never substance use type: does not use caffeine: No ROS Constitutional Constitutional: Reports anorexia; Denies fever(s) Cardiovascular Cardiovascular: Denies chest pain or palpitations Respiratory/Chest Respiratory/Chest: Denies cough or shortness of breath at rest Gastrointestinal Gastrointestinal: Reports abdominal pain and nausea; Denies hematemesis Genitourinary Genitourinary: Denies dysuria Musculoskeletal Musculoskeletal: Denies abnormal gait Integumentary Integumentary: Denies jaundice Neurologic Neurologic: Denies abnormal gait or loss of vision Hematologic/Lymphatic Hematologic/Lymphatic: Reports easy bruising and other Details: on xarelto Vital Signs Vital Signs Vital Signs: 07/18/21 13:20 07/18/21 15:02 Temperature 97.1 F L Temperature Source Temporal Pulse Rate 92 79 Respiratory Rate 16 Blood Pressure 162/85 H 158/82 H Blood Pressure Mean 110 107 Pulse Ox 97 98 Oxygen Delivery Method Room Air Room Air Weight Weight: 63.7 kg Body Mass Index (BMI) 27.4 Physical Exam Const oriented x3 and no apparent distress Resp normal respiratory effort Cardio Cardio Narrative: afib GI GI Narrative: abdomen is obese and soft but tender superior to umbilicus hernia palpated and partially reduced but patient still with abdominal pain Extremity no clubbing, cyanosis or edema Results Lab / Micro Data Result Diagrams: 07/18/21 13:50 07/18/21 13:50 Labs: Laboratory Results - last 24 hr 07/18/21 13:50: WBC 9.2, RBC 3.17 L, Hgb 11.1 L, Hct 32.6 L, MCV 102.8 H, MCH 35.0 H, MCHC 34.0, RDW Std Deviation 50.2 H, RDW Coeff of Yifan 13.2, Plt Count 294, MPV 10.4, Immature Gran % (Auto) 0.800, Neut % (Auto) 82.0 H, Lymph % (Auto) 10.0 L, [place] % (Auto) 5.5, Eos % (Auto) 1.4, Baso % (Auto) 0.3, Absolute Neuts (auto) 7.5, Absolute Lymphs (auto) 0.92, Nucleated RBC % 0 07/18/21 13:50: Sodium 136, Potassium 3.4 L, Chloride 104, Carbon Dioxide 26.0, Anion Gap 6, BUN 16, Creatinine 0.84, Estim Creat Clear Calc 33.89, Est GFR (MDRD) Af Amer 82, Est GFR (MDRD) Non-Af 68, BUN/Creatinine Ratio 19.0, Glucose 167 H, Calcium 9.3, Total Bilirubin 0.70, AST 81 H, ALT 119 H, Alkaline Phosphatase 302 H, Total Protein 7.3, Albumin 3.8, Globulin 3.5, Albumin/Globulin Ratio 1.1, Lipase 117 07/18/21 14:20: Urine Color Yellow, Urine Clarity Clear, Urine pH 6.5, Ur Specific [place] 1.010, Urine Protein Negative, Urine Glucose (UA) Normal, Urine Ketones Negative, Urine Occult Blood Negative, Urine Nitrite Negative, Urine Bilirubin Negative, Urine Urobilinogen Normal, Ur Leukocyte Esterase Negative, Urine RBC 0 SEEN, Urine WBC 0 SEEN, Ur Squamous Epith Cells 0 SEEN, Urine Bacter ia 0 SEEN, Urine Mucus 0 SEEN 07/18/21 15:30: Lactic Acid 1.7 Radiology Impression Abdomen/Pelvis CT 07/18/21 13:38 IMPRESSION: Paraumbilical hernia containing thick walled transverse colon with mild edema in the hernia sac, concerning for strangulated hernia without evidence for colonic obstruction. Colonic diverticulosis without acute diverticulitis. Small renal cysts. Mild bladder wall thickening, likely sequela of cystitis. Individualized dose optimization techniques were used for this CT. 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 I have discussed risks with patient and her daughter who is present with her, including but not limited to: infection, bleeding (especially since she is on xarelto), injury to any blood vessels/nerves, scar tissue, injury to any intraabdominal organs, injury to kidney/ureters, injury to bowel/bladder, intr aabdominal abscess/bleeding, recurrence of hernia, wound infections, complications of anesthesia, postoperative pneumonia/cardiac problems/blood clots/CVA, etc. the patient understands. I have also explained that if colon appears compromised, resection may be required and patient may have a colostomy. They understand. The patient wishes to proceed. I have answered all questions to the patient?s satisfaction and the patient has no further questions.
--- NOTE | 2021-07-18 16:16 | EKG12_ITS ---
Test Reason : PRE OP Blood Pressure : / mmHG Vent. Rate : 089 BPM Atrial Rate : 089 BPM P-R Int : 148 ms QRS Dur : 090 ms QT Int : 392 ms P-R-T Axes : 082 065 032 degrees QTc Int : 476 ms Normal sinus rhythm Nonspecific ST abnormality Abnormal ECG Confirmed by MELISSA LOVELL, MATIAS ([id number]), science editor VIRGINIA LOPEZ ([id number]) on 07/22/2021 1:16:48 PM Referred By: RAMESH Confirmed By:MATIAS TORRES MD
--- NOTE | 2021-07-18 16:27 | PCM.CONS.GEN ---
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 Incisional/periumbilical hernia of anterior abdominal wall with inflammation, concern for strangulated hernia: Patient is taken to the OR for surgical emergency for exploratory laparotomy. Discussed with surgeon Dr. Wilkins. Admitted under surgical service. Perioperative NSQIP surgical risk elevated. It shows rate of serious complication, and any complication, pneumonia, cardiac complication, UTI, venous thromboembolism, renal failure and readmission above average. Surgical site infection below average. She did not had any major cardiopulmonary complication in last 2 months. She was last admitted between April 17?2021 for A. fib with RVR. At that time echo was done in May 01 shows hyperdynamic LV, estimated EF 75%, moderate concentric LVH, mild eccentric MR, mild to moderate TR, mild WI, moderate to severe mitral calcification RVSP 37 MAG with evidence of diastolic dysfunction. He is well preserved. Heart rate was controlled on amiodarone and metoprolol. Discussed with it service manager Dr. Marsh and will consult him. Hold Xarelto. Heart rate is controlled. Continue incentive spirometry. Patient does not have a smoking history. 2. Paroxysmal A. fib: Her last dose of Xarelto was 7 PM on 07/17/2021. Hold Xarelto. Bleeding risk is explained to the patient has it takes about 48 hours for kidneys to clear Xarelto. Patient understands and has this is emergency proceed with surgery. Currently patient is in sinus rhythm. Twelve-lead EKG done shows normal sinus rhythm [address]-T abnormality. 3. Recent non-STEMI/nonobstructive atherosclerotic coronary artery disease: During previous admission, patient had high troponins and underwent cardiac cath which revealed eccentric hazy 75% stenosis of mid LAD, mid RCA 25%. Otherwise normal LV size, wall motion and systolic function. Moderate to severe mitral valve annular calcification. Continue aspirin, statin, metoprolol, amiodarone amlodipine after surgery as permitted oral as per discretion of surgeon. Change metoprolol to IV. 4. Hypertension: Blood pressure is controlled. Continue IV antihypertensive medication as needed blood pressure was high 5. Hypothyroidism: Hold Synthroid until more or less permitted. 6. GERD: Continue PPI IV. 7. Chronic back pain status post kyphoplasty: She had capacity 6 weeks ago but her back pain came back. She has follow-up date with Dr. Ingram, can follow as an outpatient. 8. Hyperglycemia, glucose in BMP is 167. Accu-Chek every 6 encore with Humalog sliding scale. Patient does not have any history of diabetes. A1c tomorrow a.m. ordered VTE prophylaxis: Bilateral SCDs. Postop pharmacological prophylaxis as per discretion of surgeon when bleeding risk is controlled. Xarelto can be resumed 36 to 48hour in bleeding risk is well controlled. Total time of the visit including total time spent in counseling or coordination of care, (more than 50% of the total time, spent in obtaining medical information from nurses and other ancillary care providers,explaining to the patient about labs, imaging, diagnosis and management), discussion with it service manager and surgeon, review of labs and imaging is 40 minutes. Living will/advanced directive/end of life care: Patient does have living will or advanced directive. I talked to the patient's [id number] near the bedside. After discussion of benefits/risks with the patient and [id number] Procedures involved with full code, DNR CC arrest and DNR CC, the patient has DNRCC arrest in place and wants to maintain DNR CC arrest no intubation. But I think patient will need intubation for general anesthesia as per discretion of the anesthesiologist. Patient doesn't want artificial life support including intubation, tube feed, ventilator and/chest compression, central venous catheter, vasopressor and DC shock if needed for prolonged period to maintain her life on artificial life support Total time spent in [id number] encounter in discussion of advanced directive 16 minutes. HPI Consult Data Date of Consult: 07/18/21 PCP / Referring MD: Dr. Destinee Persaud HPI Narrative Reason for Consultation: Perioperative management multiple comorbidities including HPI Narrative: ALEX TRAN, is a 86 F with multiple comorbidities including atherosclerotic, A. fib on Xarelto, hypertension and hypothyroidism came to ED for abdominal pain. Her abdominal pain is periumbilical that is started middle of the night when she went to bathroom. Pain was gradual in onset and became persistent, diffuse and severe, 8-9/10 intensity without exacerbating or relieving factor. She did not had vomiting but nausea. She had a bowel movement in the morning which he states was normal without any blood. Not passing flatus. Patient had hysterectomy for benign contractility fibromyoma In ED, CT scan was done which shows herniated transverse colon with mild edema and inflammation in the hernial sac with concern for obstructed hernia. The surgeon decided exploratory laparotomy. Twelve-lead EKG done in the ER showed normal sinus rhythm 89 bpm, nonspecific ST-T abnormality. QTC 476 ms. Patient denies any recent chest pain or shortness of breath at rest or on exertion. She has chronic back pain and had kyphoplasty by Dr. Ingram about 6 weeks ago. Her back pain has come back in last few weeks and she had appointment to see Dr. Ingram tomorrow. No fever or chills. Vitals in the ER blood pressure 132/85, heart rate 92/min, pulse ox 97% on room air. 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 Syncope Home Medications Xarelto 20 mg PO DAILY 04/17/21 [History Last Taken 04/16/21] levothyroxine 125 mcg PO DAILY 04/17/21 [History Last Taken 04/17/21] omeprazole 20 mg PO DAILY 04/17/21 [History Last Taken 04/17/21] atorvastatin [Lipitor] 40 mg PO QHS #30 tab 04/19/21 [Rx Last Taken Unknown] amlodipine 2.5 mg tablet 2.5 mg PO QHS #30 tab 04/23/21 [Rx Last Taken Unknown] irbesartan 150 mg-hydrochlorothiazide 12.5 mg tablet 1 tab PO QAM #90 tab 04/29/21 [Rx Last Taken Unknown] acetaminophen 500 mg tablet 500 mg PO Q8H PRN tab 07/15/21 [History Last Taken Unknown] calcium carbonate 600 mg-vitamin D3 12.5 mcg (500 unit) capsule 1 cap PO DAILY cap 07/15/21 [History Last Taken Unknown] tramadol 50 mg tablet 50 mg PO DAILY PRN 07/15/21 [History Last Taken Unknown] Allergy/AdvReac Type Severity Reaction Status Date / Time No Known Allergies Allergy Verified 07/18/21 13:20 Family History Mother Congestive heart failure Surgical History History of carpal tunnel surgery History of hysterectomy History of kyphoplasty History of left heart catheterization (~04/19/21) History of tonsillectomy Social History Smoking Status: Never smoker alcohol intake: never substance use type: does not use caffeine: No ROS ROS Narrative Constitutional: Moderate to severe abdominal pain admission HPI HEENT: Reports systems reviewed and no addt'l complaints, except as documented Respiratory/Chest: Denies chest pain, shortness of breath at rest or with exertion Gastrointestinal: Admission HPI Genitourinary: Denies burning urination or new urinary tract symptoms Musculoskeletal: Reports joint pain especially lower back pain and limited range of motion Neurologic: Denies seizure-like activity. No focal neurological symptoms skin: No ulcer. No rash Endocrinology: Reports systems reviewed and no addt'l complaints, except as documented Hematologic/Lymphatic: Reports systems reviewed and no addt'l complaints, except as documented Rest 14 ROS are negative except as mentioned in HPI Physical Exam Narrative General: Alert, Oriented x3, Cooperative HEENT: Atraumatic, PERRLA, EOMI, Normocephalic Oral: Oral mucosa dry. No Gingival or Mucosal Lesions/ Ulcerations Neck: Supple, No JVD, Negative Carotid Bruits Lungs: Air entry diminished in bilateral lung bases. No crepitation/rhonchi Cardiovascular: Regular rate, Regular Rhythm, Normal S1, Normal S2,hol systolic murmur over right second ICS, LLSB and cardiac apex Abdomen: Bowel Sounds Present, Soft, tenderness present around periumbilical hernia. Umbilical hernia not reducible. : No renal angle tenderness. No suprapubic tenderness. Extremities: No edema, Capillary Refill Less than 3 Seconds Skin: No rashes, No breakdown Musculoskeletal: No Tenderness to Palpation of Joints or Extremities. Back/spine not examined because of activity of surgical abdomen Neurological: Cranial nerves II-XII grossly intact, DTR 2+/4 and Symmetrical, Neuro grossly intact Psych/Mental Status: Flat affect Lab / Micro Data Result Diagrams: 07/18/21 13:50 07/18/21 13:50 Labs: Laboratory Results - last 24 hr 07/18/21 13:50: WBC 9.2, RBC 3.17 L, Hgb 11.1 L, Hct 32.6 L, MCV 102.8 H, MCH 35.0 H, MCHC 34.0, RDW Std Deviation 50.2 H, RDW Coeff of [place] 13.2, Plt Count 294, MPV 10.4, Immature Gran % (Auto) 0.800, Neut % (Auto) 82.0 H, Lymph % (Auto) 10.0 L, [place] % (Auto) 5.5, Eos % (Auto) 1.4, Baso % (Auto) 0.3, Absolute Neuts (auto) 7.5, Absolute Lymphs (auto) 0.92, Nucleated RBC % 0 07/18/21 13:50: Sodium 136, Potassium 3.4 L, Chloride 104, Carbon Dioxide 26.0, Anion Gap 6, BUN 16, Creatinine 0.84, Estim Creat Clear Calc 33.89, Est GFR (MDRD) Af Amer 82, Est GFR (MDRD) Non-Af 68, BUN/Creatinine Ratio 19.0, Glucose 167 H, Calcium 9.3, Total Bilirubin 0.70, AST 81 H, ALT 119 H, Alkaline Phosphatase 302 H, Total Protein 7.3, Albumin 3.8, Globulin 3.5, Albumin/Globulin Ratio 1.1, Lipase 117 07/18/21 14:20: Urine Color Yellow, Urine Clarity Clear, Urine pH 6.5, Ur Specific [place] 1.010, Urine Protein Negative, Urine Glucose (UA) Normal, Urine Ketones Negative, Urine Occult Blood Negative, Urine Nitrite Negative, Urine Bilirubin Negative, Urine Urobilinogen Normal, Ur Leukocyte Esterase Negative, Urine RBC 0 SEEN, Urine WBC 0 SEEN, Ur Squamous Epith Cells 0 SEEN, Urine Bacteria 0 SEEN, Urine Mucus 0 SEEN 07/18/21 15:30: Lactic Acid 1.7 Radiology Impression Abdomen/Pelvis CT 07/18/21 13:38 IMPRESSION: Paraumbilical hernia containing thick walled transverse colon with mild edema in the hernia sac, concerning for strangulated hernia without evidence for colonic obstruction. Colonic diverticulosis without acute diverticulitis. Small renal cysts. Mild bladder wall thickening, likely sequela of cystitis. Individualized dose optimization techniques were used for this CT. at 1459 Reported and signed by: Latosha Goodman MD Electronically Signed: Latosha Goodman MD at 14:58 EDT Reading Location ID and State: [facility] / [place] Tel , Service support , Charges/Coding Visit Charges Office Visits / Consults: 68168 IP Consult L4 Procedures Hospitalists Procedures: 55316 Advncd Care Plan 30 Min
--- NOTE | 2021-07-18 16:45 | HERN_PTH ---
PATIENT: ALEX TRAN LOC: MS3 U#:[id number] AGE/SX: 86/F ROOM: FL324 RE07/18/[address]: Dr. Jayla Tate MD : 1935 BED: 1 DIS: 07/19/2021 SPEC #: [id number] RECD: 07/19/21 08:04 STATUS: MIKAL RESheryl #: [id number] LEONARD: 07/18/21 16:[address]: Destinee Persaud DEPT: SURGICAL PATHOLOGY RECD BY: Kimberly Mon ENTERED: 07/19/21 09:41 SP TYPE: Hernia OTHR DR: MD Dr. Enriqueta Rueda MD Dr. Linda Wang, MD Dr. 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 AM:steven 07/20/2021 MICROSCOPIC DESCRIPTION Slides are reviewed. GROSS DESCRIPTION Received in fixative is one container labeled with the patient's name and designated hernia sac. The specimen consists of multiple irregular fragments of pink-yellow soft tissue that in aggregate measure 7 x 3 x 1 cm. Serial sections do not reveal mass lesions. Canal Driver sections are submitted in two cassettes. / AM:steven 07/19/2021 TC:5 [facility]: [id number]
[2021-07-18 16:57] LABS: Magnesium 1.8 mg/dL (1.6-2.6); Phosphorus 2.5 mg/dL (2.5-4.9)
--- NOTE | 2021-07-18 17:05 | CON.PCM.CA_ITS ---
HPI Consult Data Date of Consult: 07/18/21 HPI Narrative Reason for Consultation: CAD/paroxysmal A. 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 Syncope Home Medications Xarelto 20 mg PO DAILY 04/17/21 [History Last Taken 04/16/21] levothyroxine 125 mcg PO DAILY 04/17/21 [History Last Taken 04/17/21] omeprazole 20 mg PO DAILY 04/17/21 [History Last Taken 04/17/21] atorvastatin [Lipitor] 40 mg PO QHS #30 tab 04/19/21 [Rx Last Taken Unknown] amlodipine 2.5 mg tablet 2.5 mg PO QHS #30 tab 04/23/21 [Rx Last Taken Unknown] irbesartan 150 mg-hydrochlorothiazide 12.5 mg tablet 1 tab PO QAM #90 tab 04/29 [Rx Last Taken Unknown] acetaminophen 500 mg tablet 500 mg PO Q8H PRN tab 07/15/21 [History Last Taken Unknown] calcium carbonate 600 mg-vitamin D3 12.5 mcg (500 unit) capsule 1 cap PO DAILY cap 07/15/21 [History Last Taken Unknown] tramadol 50 mg tablet 50 mg PO DAILY PRN 07/15/21 [History Last Taken Unknown] Allergy/AdvReac Type Severity Reaction Status Date / Time No Known Allergies Allergy Verified 07/18/21 13:20 Family History Mother Congestive heart failure Surgical History History of carpal tunnel surgery History of hysterectomy History of kyphoplasty History of left heart catheterization (~04/19/21) History of tonsillectomy Social History Smoking Status: Never smoker alcohol intake: never substance use type: does not use caffeine: No Physical Exam Narrative I came to see the patient in the ER reviewed the EKG which showed sinus rhythm Patient was taken to the OR for emergency strangulated hernia. No physical exam performed Risk Stratification Risk Stratification Applicable: No Objective Data Vital Signs: Vital Signs Temp Pulse Resp BP Pulse Ox 98.1 F 81 18 161/85 H 98 07/18/21 16:55 07/18/21 16:55 07/18/21 16:55 07/18/21 16:55 07/18/21 16:55 Oxygen Delivery Method Room Air Weight: 140 lb 6.951 oz Body Mass Index (BMI) 27.4 Intake & Output: Intake and Output for Last 24 Hours 07/16/21 07/17/21 07/18/21 23:59 23:59 23:59 Intake Total 1000 / 1000 Balance 1000 / 1000 Lab / Micro Data Result Diagrams: 07/18/21 13:50 07/18/21 13:50 Labs: Laboratory Results - last 24 hr 07/18/21 13:50: WBC 9.2, RBC 3.17 L, Hgb 11.1 L, Hct 32.6 L, MCV 102.8 H, MCH 35.0 H, MCHC 34.0, RDW Std Deviation 50.2 H, RDW Coeff of [place]if[place] 13.2, Plt Count 294, MPV 10.4, Immature Gran % (Auto) 0.800, Neut % (Auto) 82.0 H, Lymph % (Auto) 10.0 L, [place] % (Auto) 5.5, Eos % (Auto) 1.4, Baso % (Auto) 0.3, Absolute Neuts (auto) 7.5, Absolute Lymphs (auto) 0.92, Nucleated RBC % 0 07/18/21 13:50: Sodium 136, Potassium 3.4 L, Chloride 104, Carbon Dioxide 26.0, Anion Gap 6, BUN 16, Creatinine 0.84, Estim Creat Clear Calc 33.89, Est GFR (MDRD) Af Amer 82, Est GFR (MDRD) Non-Af 68, BUN/Creatinine Ratio 19.0, Glucose 167 H, Calcium 9.3, Total Bilirubin 0.70, AST 81 H, ALT 119 H, Alkaline Phosphatase 302 H, Total Protein 7.3, Albumin 3.8, Globulin 3.5, Albumin/Globulin Ratio 1.1, Lipase 117 04/10/22 13:50: Phosphorus 2.5, Magnesium 1.8 07/18/21 14:20: Urine Color Yellow, Urine Clarity Clear, Urine pH 6.5, Ur Specific [place] 1.010, Urine Protein Negative, Urine Glucose (UA) Normal, Urine Ketones Negative, Urine Occult Blood Negative, Urine Nitrite Negative, Urine Bilirubin Negative, Urine Urobilinogen Normal, Ur Leukocyte Esterase Negative, Urine RBC 0 SEEN, Urine WBC 0 SEEN, Ur Squamous Epith Cells 0 SEEN, Urine Bacteria 0 SEEN, Urine Mucus 0 SEEN 07/18/21 15:30: Lactic Acid 1.7 Micro: Microbiology 07/18/21 16:10 Nasal Secretion SARS-CoV-2 Antigen (Rapid) - Final Cardiology Labs/Tests 07/18/21 13:50: WBC 9.2, RBC 3.17 L, Hgb 11.1 L, Hct 32.6 L, MCV 102.8 H, MCH 35.0 H, MCHC 34.0, Plt Count 294, MPV 10.4, Immature Gran % (Auto) 0.800, Neut % (Auto) 82.0 H, Lymph % (Auto) 10.0 L, [place] % (Auto) 5.5, Eos % (Auto) 1.4, Baso % (Auto) 0.3, Absolute Neuts (auto) 7.5, Nucleated RBC % 0 07/18/21 13:50: Sodium 136, Potassium 3.4 L, Chloride 104, Carbon Dioxide 26.0, Anion Gap 6, BUN 16, Creatinine 0.84, Est GFR (MDRD) Af Amer 82, Est GFR (MDRD) Non-Af 68, BUN/Creatinine Ratio 19.0, Glucose 167 H, Calcium 9.3, Total Bilirubin 0.70 07/18/21 13:50: Phosphorus 2.5, Magnesium 1.8 07/18/21 14:20: Urine Color Yellow, Urine Clarity Clear, Urine pH 6.5, Ur Specific [place] 1.010, Urine Protein Negative, Urine Glucose (UA) Normal, Urine Ketones Negative, Urine Occult Blood Negative, Urine Nitrite Negative, Urine B ilirubin Negative, Urine Urobilinogen Normal, Ur Leukocyte Esterase Negative, Urine RBC 0 SEEN, Urine WBC 0 SEEN 07/18/21 15:30: Lactic Acid 1.7 Rhythm: EKG: ECHO: Stress Test: Cardiac Cath: PCI: CT Surgery: Holter monitor: EPS: PPM: CXR: Chest CT Scan: Radiography Diagnostic Testing: Radiology Impression Abdomen/Pelvis CT 07/18/21 13:38 IMPRESSION: Paraumbilical hernia containing thick walled transverse colon with mild edema in the hernia sac, concerning for strangulated hernia without evidence for colonic obstruction. Colonic diverticulosis without acute diverticulitis. Small renal cysts. Mild bladder wall thickening, likely sequela of cystitis. Individualized dose optimization techniques were used for this CT. at 1459 Reported and signed by: Latosha Goodman MD Electronically Signed: Latosha Goodman MD at 14:58 EDT ,
--- NOTE | 2021-07-18 17:11 | PCM.CONS.C ---
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 I reviewed the cardiac data patient is seen and followed by Dr. Teran on the prior cardiac catheterization was done she had preserved LV function and she had a lesion in the mid LAD, left main, left circumflex, RCA had nonobstructive sclerosis and LV function is preserved with ejection fraction within normal. With a history of prior non-ST elevation [place] Paroxysmal atrial fibrillation, patient maintained sinus rhythm She had a cardiac catheterization with the mid LAD stenosis evaluated by of IFR and decision was made to treat medical therapy Cardiac care plan recommendation 1. Patient has strangulated hernia which is an emergency and to proceed to the OR 2. She was on anticoagulation with Xarelto which will involve the risk for bleeding However with the emergency strangulated hernia to proceed with surgery 3. Patient had CAD with a lesion intermediate in the mid LAD And that would be an intermediate risk for cardiopulmonary event From cardiac standpoint we will continue to monitor and follow-up clinically Patient to follow-up as an outpatient with the primary car manager Dr. Teran HPI Consult Data Date of Consult: 07/18/21 HPI Narrative Reason for Consultation: CAD/A. 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 Syncope Home Medications Xarelto 20 mg PO DAILY 04/17/21 [History Last Taken 04/16/21] levothyroxine 125 mcg PO DAILY 04/17/21 [History Last Taken 04/17/21] omeprazole 20 mg PO DAILY 04/17/21 [History Last Taken 04/17/21] atorvastatin [Lipitor] 40 mg PO QHS #30 tab 04/19/21 [Rx Last Taken Unknown] amlodipine 2.5 mg tablet 2.5 mg PO QHS #30 tab 04/23/21 [Rx Last Taken Unknown] irbesartan 150 mg-hydrochlorothiazide 12.5 mg tablet 1 tab PO QAM #90 tab 04/29/21 [Rx Last Taken Unknown] acetaminophen 500 mg tablet 500 mg PO Q8H PRN tab 07/15/21 [History Last Taken Unknown] calcium carbonate 600 mg-vitamin D3 12.5 mcg (500 unit) capsule 1 cap PO DAILY cap 07/15/21 [History Last Taken Unknown] tramadol 50 mg tablet 50 mg PO DAILY PRN 07/15/21 [History Last Taken Unknown] Allergy/AdvReac Type Severity Reaction Status Date / Time No Known Allergies Allergy Verified 07/18/21 13:20 Family History Mother Congestive heart failure Surgical History History of carpal tunnel surgery History of hysterectomy History of kyphoplasty History of left heart catheterization (~04/19/21) History of tonsillectomy Social History Smoking Status: Never smoker alcohol intake: never substance use type: does not use caffeine: No Physical Exam Narrative Consultation from review of records and review of the cardiac evaluation Patient was taken as emergency to the OR No physical exam performed Risk Stratification Risk Stratification Applicable: Yes Age >/= 65: Yes >/= 3 CAD Risk Factors (HTN, HLD, DM, family hx of CAD, or current smoker): No Aspirin Use in the Past 7 Days: Yes Severe Angina (>/= episodes in 24 hours): No EKG ST Changes >/= 0.5mm: No Positive Cardiac Marker: No FRED Risk Stratification Score: 2 FRED % Risk: 8% Risk Objective Data Vital Signs: Vital Signs Temp Pulse Resp BP Pulse Ox 98.1 F 81 18 161/85 H 98 07/18/21 16:55 07/18/21 16:55 04/10/22 16:55 07/18/21 16:55 07/18/21 16:55 Oxygen Delivery Method Room Air Weight: 140 lb 6.951 oz Body Mass Index (BMI) 27.4 Intake & Output: Intake and Output for Last 24 Hours 07/16/21 07/17/21 07/18/21 23:59 23:59 23:59 Intake Total 1000 / 1000 Balance 1000 / 1000 Lab / Micro Data Result Diagrams: 07/18/21 13:50 07/18/21 13:50 Labs: Laboratory Results - last 24 hr 07/18/21 13:50: WBC 9.2, RBC 3.17 L, Hgb 11.1 L, Hct 32.6 L, MCV 102.8 H, MCH 35.0 H, MCHC 34.0, RDW Std Deviation 50.2 H, RDW Coeff of Yifan 13.2, Plt Count 294, MPV 10.4, Immature Gran % (Auto) 0.800, Neut % (Auto) 82.0 H, Lymph % (Auto) 10.0 L, [place] % (Auto) 5.5, Eos % (Auto) 1.4, Baso % (Auto) 0.3, Absolute Neuts (auto) 7.5, Absolute Lymphs (auto) 0.92, Nucleated RBC % 0 07/18/21 13:50: Sodium 136, Potassium 3.4 L, Chloride 104, Carbon Dioxide 26.0, Anion Gap 6, BUN 16, Creatinine 0.84, Estim Creat Clear Calc 33.89, Est GFR (MDRD) Af Amer 82, Est GFR (MDRD) Non-Af 68, BUN/Creatinine Ratio 19.0, Glucose 167 H, Calcium 9.3, Total Bilirubin 0.70, AST 81 H, ALT 119 H, Alkaline Phosphatase 302 H, Total Protein 7.3, Albumin 3.8, Globulin 3.5, Albumin/Globulin Ratio 1.1, Lipase 117 07/18/21 13:50: Phosphorus 2.5, Magnesium 1.8 07/18/21 14:20: Urine Color Yellow, Urine Clarity Clear, Urine pH 6.5, Ur Specific [place] 1.010, Urine Protein Negative, Urine Glucose (UA) Normal, Urine Ketones Negative, Urine Occult Blood Negative, Urine Nitrite Negative, Urine Bilirubin Negative, Urine Urobilinogen Normal, Ur Leukocyte Esterase Negative, Urine RBC 0 SEEN, Urine WBC 0 SEEN, Ur Squamous Epith Cells 0 SEEN, Urine Bacteria 0 SEEN, Urine Mucus 0 SEEN 07/18/21 15:30: Lactic Acid 1.7 Micro: Microbiology 07/18/21 16:10 Nasal Secretion SARS-CoV-2 Antigen (Rapid) - Final Cardiology Labs/Tests 07/18/21 13:50: WBC 9.2, RBC 3.17 L, Hgb 11.1 L, Hct 32.6 L, MCV 102.8 H, MCH 35.0 H, MCHC 34.0, Plt Count 294, MPV 10.4, Immature Gran % (Auto) 0.800, Neut % (Auto) 82.0 H, Lymph % (Auto) 10.0 L, [place] % (Auto) 5.5, Eos % (Auto) 1.4, Baso % (Auto) 0.3, Absolute Neuts (auto) 7.5, Nucleated RBC % 0 07/18/21 13:50: Sodium 136, Potassium 3.4 L, Chloride 104, Carbon Dioxide 26.0, Anion Gap 6, BUN 16, Creatinine 0.84, Est GFR (MDRD) Af Amer 82, Est GFR (MDRD) Non-Af 68, BUN/Creatinine Ratio 19.0, Glucose 167 H, Calcium 9.3, Total Bilirubin 0.70 07/18/21 13:50: Phosphorus 2.5, Magnesium 1.8 07/18/21 14:20: Urine Color Yellow, Urine Clarity Clear, Urine pH 6.5, Ur Specific [place] 1.010, Urine Protein Negative, Urine Glucose (UA) Normal, Urine Ketones Negative, Urine Occult Blood Negative, Urine Nitrite Negative, Urine Bilirubin Negative, Urine Urobilinogen Normal, Ur Leukocyte Esterase Negative, Urine RBC 0 SEEN, Urine WBC 0 SEEN 07/18/21 15:30: Lactic Acid 1.7 Rhythm: EKG: ECHO: Stress Test: Cardiac Cath: PCI: CT Surgery: Holter monitor: EPS: PPM: CXR: Chest CT Scan: Radiography Diagnostic Testing: Radiology Impression Abdomen/Pelvis CT 07/18/21 13:38 IMPRESSION: Paraumbilical hernia containing thick walled transverse colon with mild edema in the hernia sac, concerning for strangulated hernia without evidence for colonic obstruction. Colonic diverticulosis without acute diverticulitis. Small renal cysts. Mild bladder wall thickening, likely sequela of cystitis. Individualized dose optimization techniques were used for this CT. at 1459 Reported and signed by: Latosha Goodman MD Electronically Signed: Latosha Goodman MD at 14:58 EDT ,
--- NOTE | 2021-07-18 17:54 | OP.PCM_ITS ---
Report of Operation Date of Procedure: 07/18/21 Pre-Operative Diagnosis: incisional ventral hernia with bowel obstruction Post-Operative Diagnosis: same as above, no gangrenous bowel Surgery/Procedure Performed:: repair of incarcerated/obstructed incisional hernia Description of Surgical Findings:: large incisional hernia with incarcerated transverse colon - no gangrene noted Surgeon: Destinee Persaud Type of Anesthesia: General Anesthesiologist: Brandi Willett Specimen's removed: hernia sac Estimated Blood Loss (mL): < 10 ml Fluids Replaced: 300 ml RL Description of Procedure: After informed consent was obtained, the patient was brought to the Operating Room. Appropriate time out protocol was followed. The patient was placed in the supine position. The patient was then placed under anesthesia. The abdomen was then prepped with a sterile surgical skin preparation. Sterile surgical drapes were placed. This skin and subcutaneous tissues were then widely infiltrated with the local anesthetic. A skin incision was then made with a 15 blade scalpel following the previous midline incision and extending slightly superior to the umbilicus. It was carried down to the subcutaneous tissues using sharp dissection. Any hemorrhage was adequately controlled with electrocautery. Blunt dissection was done to separate the subcutaneous tissues from the umbilical hernia sac. The sac once freed of the subcutaneous tissues was then freed from the dermis of the umbilical skin. The sac was then freed up from the fascial surface. The fascial defect was then properly outlined. The sac was from the fascial opening. It was opened - there was incarcerated transverse colon and omentum in the sac and it was able to be from the sac and reduced back into the intraabdominal cavity. There was no evidence of gangrene. The sac was resected from the fascial edges and forwarded to pathology for analysis. The fascial defect was then closed along the midline with interrupted figure of 8 - 0 PDS suture. Hemostasis was controlled with electrocautery. The subdermis was reapproximated with running 3-0 vicryl suture. The skin incision was reapproximated with skin kin. Sponge, suture and instrument count were veri fied and correct. A sterile opsite dressing was applied. The patient was brought from to the Recovery Room in stable condition.. Complications none noted Admit VTE Documentation VTE Present on Admission: Yes VTE Mechan Device Prophylaxis: SCD's
[2021-07-18] MEDS: Lactated Ringers 1,000 ML 50 ML IV (20:22)
[2021-07-18 20:31] LABS: Bedside Glucose 150 mg/dL (74-106)
[2021-07-18] MEDS: 0.9% Saline Lock 10 ML Syringe IV (23:16)
[2021-07-18] MEDS: Insulin Lispro 100 UNIT/ML INSULN.PEN SC (23:16)
[2021-07-18 23:26] LABS: Bedside Glucose 155 mg/dL (74-106)
[2021-07-19] VITALS (7 sets, daily range): BP systolic 131–150; BP diastolic 67–82; PULSE 62–78; RESP 18; TEMP 36.6–36.7; O2SAT 91–98
[2021-07-19] MEDS: 0.9% Saline Lock 10 ML Syringe IV (02:54)
[2021-07-19 06:23] LABS: Absolute Lymphocyte Count 0.55 X10^3/uL (0.83-4.51); Absolute Neutrophil Count 9.6 X10^3/uL (2.0-7.7); Basophil# 0.01 X10^3/uL; Basophil% 0.1 % (0-1); Hematocrit 28.7 % (37-47); Hemoglobin 9.7 g/dL (12.0-15.0); Lymphocyte # 0.55 X10^3/ul (0.83-4.51); Lymphocyte % 5.3 % (19-41); Mean Corp Hgb Conc 33.8 g/dL (32-36); Mean Corpuscular Hgb 34.9 pg (27.0-32.0); Mean Corpuscular Volume 103.2 fL (81-99); Mean Platelet Vol. 9.9 fl (6.2-12.0); Monocyte# 0.26 X10^3/uL; Monocyte% 2.5 % (0-10); NRBC Flagged by Analyzer 0 % (0-5); Neutrophil # 9.59 X10^3/uL (2.7-7.7); Neutrophil % 91.5 % (47-70); POSITIVE DIFFERENTIAL YES; Platelet Count 242 K/mm3 (150-450); RBC Distribution Width CV 13.3 % (11.6-14.6); RBC Distribution Width SD 51.7 fl (35.1-43.9); Red Blood Count 2.78 M/mm3 (4.2-5.4); White Blood Count 10.5 K/mm3 (4.4-11.0)
[2021-07-19 06:35] LABS: Bedside Glucose 123 mg/dL (74-106)
[2021-07-19 06:43] LABS: Differential Indicated SCAN CRITERIA MET
[2021-07-19 06:51] LABS: Differential Comment SCANNED
[2021-07-19 06:55] LABS: AST(SGOT) 44 U/L (15-37); Alanine Aminotransfer ALT/SGPT 85 U/L (13-56); Albumin, Serum 3.3 g/dL (3.2-5.0); Alkaline Phosphatase 235 U/L (45-117); Anion Gap 7 (5-15); BUN 15 mg/dL (7-18); BUN/Creat Ratio 19.9 RATIO (10-20); Bilirubin, Direct 0.16 mg/dL (0.00-0.30); Chloride 107 mmol/L (98-107); Creatinine, Serum 0.75 mg/dL (0.55-1.02); EST Glomerular Filtration Rate 77 mL/min (>60); Est Glom Filt Rate - Afr Amer 93 mL/min (>60); Estimated Creatinine Clearance 28.47 ml/min; Globulin 3.2 g/dL (2.2-4.2); Glucose 142 mg/dL (74-106); Magnesium 1.6 mg/dL (1.6-2.6); Potassium 4.3 mmol/L (3.5-5.1); Protein, Total 6.5 g/dL (6.4-8.2); Sodium Level 138 mmol/L (136-145)
[2021-07-19 07:07] LABS: Phosphorus 4.4 mg/dL (2.5-4.9)
[2021-07-19 07:43] LABS: Hemoglobin A1c 5.8 % (3.8-5.6)
--- NOTE | 2021-07-19 07:57 | PCM.DC ---
Discharge Instructions Follow Up Care Test Results: Test results from this visit will be discussed in further detail at your follow-up appointment, if applicable. Discharge Plan Admission Admit Date/Time: 07/18/21 16:12 Attending Provider: Jayla Tate Primary Care Provider: Art Hayward Consulting Providers: Enriqueta Yo Instructions Additional Instructions / Restrictions: Recommended pain control regimen - May take 600 mg ibuprofen (Motrin) and then in 3-4 hours, may take 650 mg acetaminophen (Tylenol), then in 3-4 hours may take 600 mg ibuprofen, then in 3-4 hours may take 650 mg acetaminophen and so on for 2-3 days May take narcotic pain medication for pain that is not controlled by above and at night for comfort through the night Leave dressings in place May shower, do not scrub in the areas of the dressings as they may unravel. Can remove binder - it has Velcro and then replace. Do not need binder to wear at night. Do not soak - no tub baths/swimming Ice applied to areas of discomfort may help No lifting/pushing/pulling greater than 10 pounds for at least a month. Regular diet as tolerated, drink plenty of fluids. Avoid carbonated beverages for a few days as this will cause abdominal bloating and thus discomfort after our surgery. Recommend over the counter laxative to prevent constipation Please call my office for an appointment to see me in 1-2 weeks. Office number is If any questions, please call my office at and ask the reaming machine operator for plastic for the general surgery nurses desk Discharge Orders/Prescriptions Prescriptions: New hydrocodone-acetaminophen 5-325 mg tablet 1 tab PO Q8H 5 Days Qty: 15 RF: 0 tramadol 50 mg tablet 50 mg PO Q8H PRN (Reason: pain) Qty: 7 RF: 0 No Action calcium carbonate-vitamin D3 [Calcium 600 with Vitamin D3] 600 mg-12.5 mcg (500 unit) capsule 1 cap PO DAILY RF: 0 acetaminophen 500 mg tablet 500 mg PO Q8H PRN (Reason: Pain) RF: 0 tramadol 50 mg tablet 50 mg PO DAILY PRN (Reason: Pain) RF: 0 levothyroxine 125 mcg Tablet 125 mcg PO DAILY RF: 0 omeprazole 20 mg Tablet,Delayed Release (Dr/Ec) 20 mg PO DAILY RF: 0 Xarelto 20 mg tablet 20 mg PO DAILY RF: 0 atorvastatin [Lipitor] 40 mg tablet 40 mg PO QHS Qty: 30 RF: 0 amlodipine 2.5 mg tablet 2.5 mg PO QHS Qty: 30 RF: 11 irbesartan-hydrochlorothiazide 150-12.5 mg tablet 1 tab PO QAM Qty: 90 RF: 3 Referrals / Follow Up: Art Hayward MD [Primary Care Provider] - Disposition Discharge Orders: Discharge Patient (Routine); Ordered 07/19/21 Ordered By: Dr. Destinee Persaud
--- NOTE | 2021-07-19 07:58 | PN.SURG_ITS ---
Subjective Subjective patient has minimal pain, feeling overall well dressing had to be changed due to seepage - patient on xarelto this morning - no seepage noted Objective Data Objective Data Vital Signs: Vital Signs Temp Pulse Resp BP Pulse Ox 98.1 F 62 18 147/67 H 98 07/19/21 02:51 07/19/21 07:00 07/19/21 02:51 07/19/21 02:51 07/19/21 02:51 Oxygen Flow Rate (L/min) 2 Oxygen Delivery Method Nasal Cannula Weight: 68.6 kg Body Mass Index (BMI) 28.2 Intake & Output: Intake and Output for Last 24 Hours 07/17/21 07/18/21 07/19/21 23:59 23:59 23:59 Intake Total 1050 / 1050 260 / 260 Output Total 50 / 50 Balance 1000 / 1000 260 / 260 Lab / Micro Data Result Diagrams: 07/19/21 06:13 07/19/21 06:13 Labs: Laboratory Results - last 24 hr 07/18/21 13:50: WBC 9.2, RBC 3.17 L, Hgb 11.1 L, Hct 32.6 L, MCV 102.8 H, MCH 35.0 H, MCHC 34.0, RDW Std Deviation 50.2 H, RDW Coeff of [place]if[place] 13.2, Plt Count 294, MPV 10.4, Immature Gran % (Auto) 0.800, Neut % (Auto) 82.0 H, Lymph % (Auto) 10.0 L, [place] % (Auto) 5.5, Eos % (Auto) 1.4, Baso % (Auto) 0.3, Absolute Neuts (auto) 7.5, Absolute Lymphs (auto) 0.92, Nucleated RBC % 0 07/18/21 13:50: Sodium 136, Potassium 3.4 L, Chloride 104, Carbon Dioxide 26.0, Anion Gap 6, BUN 16, Creatinine 0.84, Estim Creat Clear Calc 33.89, Est GFR (MDRD) Af Amer 82, Est GFR (MDRD) Non-Af 68, BUN/Creatinine Ratio 19.0, Glucose 167 H, Calcium 9.3, Total Bilirubin 0.70, AST 81 H, ALT 119 H, Alkaline Phosphatase 302 H, Total Protein 7.3, Albumin 3.8, Globulin 3.5, Albumin/Globulin Ratio 1.1, Lipase 117 07/18/21 13:50: Phosphorus 2.5, Magnesium 1.8 07/18/21 14:20: Urine Color Yellow, Urine Clarity Clear, Urine pH 6.5, Ur Specific [place] 1.010, Urine Protein Negative, Urine Glucose (UA) Normal, Urine Ketones Negative, Urine Occult Blood Negative, Urine Nitrite Negative, Urine Bilirubin Negative, Urine Urobilinogen Normal, Ur Leukocyte Esterase Negative, Urine RBC 0 SEEN, Urine WBC 0 SEEN, Ur Squamous Epith Cells 0 SEEN, Urine Bacteria 0 SEEN, Urine Mucus 0 SEEN 07/18/21 15:30: Lactic Acid 1.7 07/18/21 20:26: POC Glucose 150 H 07/18/21 23:07: POC Glucose 155 H 07/19/21 06:13: WBC 10.5, RBC 2.78 L, Hgb 9.7 L, Hct 28.7 L, MCV 103.2 H, MCH 34.9 H, MCHC 33.8, RDW Std Deviation 51.7 H, RDW Coeff of [place]if[place] 13.3, Plt Count 242, MPV 9.9, Immature Gran % (Auto) 0.600, Neut % (Auto) 91.5 H, Lymph % (Auto) 5.3 L, [place] % (Auto) 2.5, Eos % (Auto) 0.0, Baso % (Auto) 0.1, Absolute Neuts (auto) 9.6 H, Absolute Lymphs (auto) 0.55 L, Nucleated RBC % 0, Differential Comment SCANNED 07/19/21 06:13: Sodium 138, Potassium 4.3, Chloride 107, Carbon Dioxide 24.0, Anion Gap 7, BUN 15, Creatinine 0.75, Estim Creat Clear Calc 28.47, Est GFR (MDRD) Af Amer 93, Est GFR (MDRD) Non-Af 77, BUN/Creatinine Ratio 19.9, Glucose 142 H, Calcium 8.0 L, Magnesium 1.6, Total Bilirubin 0.60, Direct Bilirubin 0.16, AST 44 H, ALT 85 H, Alkaline Phosphatase 235 H, Total Protein 6.5, Albumin 3.3, Globulin 3.2 07/19/21 06:13: Hemoglobin A1c 5.8 H 07/19/21 06:13: Phosphorus 4.4 07/19/21 06:26: POC Glucose 123 H Micro: Microbiology 07/18/21 16:10 Nasal Secretion SARS-CoV-2 Antigen (Rapid) - Final Radiography Diagnostic Testing: Radiology Impression Abdomen/Pelvis CT 07/18/21 13:38 IMPRESSION: Paraumbilical hernia containing thick walled transverse colon with mild edema in the hernia sac, concerning for strangulated hernia without evidence for colonic obstruction. Colonic diverticulosis without acute diverticulitis. Small renal cysts. Mild bladder wall thickening, likely sequela of cystitis. Individualized dose optimization techniques were used for this CT. 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
--- NOTE | 2021-07-19 09:05 | PCM.PN.CARD ---
Subjective Subjective The patient is awake and alert. She denies any ongoing chest discomfort or difficulty breathing or palpitations at this time. Objective Data Vital Signs: Vital Signs Temp Pulse Resp BP Pulse Ox 97.8 F 65 18 150/82 H 98 07/19/21 08:18 07/19/21 08:18 07/19/21 08:18 07/19/21 08:18 07/19/21 08:18 Oxygen Flow Rate (L/min) 2 Oxygen Delivery Method Room Air Weight: 151 lb 3.794 oz Body Mass Index (BMI) 28.2 Intake & Output: Intake and Output for Last 24 Hours 07/17/21 07/18/21 07/19/21 23:59 23:59 23:59 Intake Total 1050 / 1050 260 / 260 Output Total 50 / 50 Balance 1000 / 1000 260 / 260 Lab / Micro Data Result Diagrams: 07/19/21 06:13 07/19/21 06:13 Labs: Laboratory Results - last 24 hr 07/18/21 13:50: WBC 9.2, RBC 3.17 L, Hgb 11.1 L, Hct 32.6 L, MCV 102.8 H, MCH 35.0 H, MCHC 34.0, RDW Std Deviation 50.2 H, RDW Coeff of [place]if[place] 13.2, Plt Count 294, MPV 10.4, Immature Gran % (Auto) 0.800, Neut % (Auto) 82.0 H, Lymph % (Auto) 10.0 L, [place] % (Auto) 5.5, Eos % (Auto) 1.4, Baso % (Auto) 0.3, Absolute Neuts (auto) 7.5, Absolute Lymphs (auto) 0.92, Nucleated RBC % 0 07/18/21 13:50: Sodium 136, Potassium 3.4 L, Chloride 104, Carbon Dioxide 26.0, Anion Gap 6, BUN 16, Creatinine 0.84, Estim Creat Clear Calc 33.89, Est GFR (MDRD) Af Amer 82, Est GFR (MDRD) Non-Af 68, BUN/Creatinine Ratio 19.0, Glucose 167 H, Calcium 9.3, Total Bilirubin 0.70, AST 81 H, ALT 119 H, Alkaline Phosphatase 302 H, Total Protein 7.3, Albumin 3.8, Globulin 3.5, Albumin/Globulin Ratio 1.1, Lipase 117 07/18/21 13:50: Phosphorus 2.5, Magnesium 1.8 07/18/21 14:20: Urine Color Yellow, Urine Clarity Clear, Urine pH 6.5, Ur Specific [place] 1.010, Urine Protein Negative, Urine Glucose (UA) Normal, Urine Ketones Negative, Urine Occult Blood Negative, Urine Nitrite Negative, Urine Bilirubin Negative, Urine Urobilinogen Normal, Ur Leukocyte Esterase Negative, Urine RBC 0 SEEN, Urine WBC 0 SEEN, Ur Squamous Epith Cells 0 SEEN, Urine Bacteria 0 SEEN, Urine Mucus 0 SEEN 07/18/21 15:30: Lactic Acid 1.7 07/18/21 20:26: POC Glucose 150 H 07/18/21 23:07: POC Glucose 155 H 07/19/21 06:13: WBC 10.5, RBC 2.78 L, Hgb 9.7 L, Hct 28.7 L, MCV 103.2 H, MCH 34.9 H, MCHC 33.8, RDW Std Deviation 51.7 H, RDW Coeff of [place]if[place] 13.3, Plt Count 242, MPV 9.9, Immature Gran % (Auto) 0.600, Neut % (Auto) 91.5 H, Lymph % (Auto) 5.3 L, [place] % (Auto) 2.5, Eos % (Auto) 0.0, Baso % (Auto) 0.1, Absolute Neuts (auto) 9.6 H, Absolute Lymphs (auto) 0.55 L, Nucleated RBC % 0, Differential Comment SCANNED 07/19/21 06:13: Sodium 138, Potassium 4.3, Chloride 107, Carbon Dioxide 24.0, Anion Gap 7, BUN 15, Creatinine 0.75, Estim Creat Clear Calc 28.47, Est GFR (MDRD) Af Amer 93, Est GFR (MDRD) Non-Af 77, BUN/Creatinine Ratio 19.9, Glucose 142 H, Calcium 8.0 L, Magnesium 1.6, Total Bilirubin 0.60, Direct Bilirubin 0.16, AST 44 H, ALT 85 H, Alkaline Phosphatase 235 H, Total Protein 6.5, Albumin 3.3, Globulin 3.2 07/19/21 06:13: Hemoglobin A1c 5.8 H 07/19/21 06:13: Phosphorus 4.4 07/19/21 06:26: POC Glucose 123 H Micro: Microbiology 07/18/21 16:10 Nasal Secretion SARS-CoV-2 Antigen (Rapid) - Final Cardiology Labs/Tests 07/18/21 13:50: WBC 9.2, RBC 3.17 L, Hgb 11.1 L, Hct 32.6 L, MCV 102.8 H, MCH 35.0 H, MCHC 34.0, Plt Count 294, MPV 10.4, Immature Gran % (Auto) 0.800, Neut % (Auto) 82.0 H, Lymph % (Auto) 10.0 L, [place] % (Auto) 5.5, Eos % (Auto) 1.4, Baso % (Auto) 0.3, Absolute Neuts (auto) 7.5, Nucleated RBC % 0 07/18/21 13:50: Sodium 136, Potassium 3.4 L, Chloride 104, Carbon Dioxide 26.0, Anion Gap 6, BUN 16, Creatinine 0.84, Est GFR (MDRD) Af Amer 82, Est GFR (MDRD) Non-Af 68, BUN/Creatinine Ratio 19.0, Glucose 167 H, Calcium 9.3, Total Bilirubin 0.70 07/18/21 13:50: Phosphorus 2.5, Magnesium 1.8 07/18/21 14:20: Urine Color Yellow, Urine Clarity Clear, Urine pH 6.5, Ur Specific [place] 1.010, Urine Protein Negative, Urine Glucose (UA) Normal, Urine Ketones Negative, Urine Occult Blood Negative, Urine Nitrite Negative, Urine Bilirubin Negative, Urine Urobilinogen Normal, Ur Leukocyte Esterase Negative, Urine RBC 0 SEEN, Urine WBC 0 SEEN 07/18/21 15:30: Lactic Acid 1.7 07/19/21 06:13: WBC 10.5, RBC 2.78 L, Hgb 9.7 L, Hct 28.7 L, MCV 103.2 H, MCH 34.9 H, MCHC 33.8, Plt Count 242, MPV 9.9, Immature Gran % (Auto) 0.600, Neut % (Auto) 91.5 H, Lymph % (Auto) 5.3 L, [place] % (Auto) 2.5, Eos % (Auto) 0.0, Baso % (Auto) 0.1, Absolute Neuts (auto) 9.6 H, Nucleated RBC % 0 07/19/21 06:13: Sodium 138, Potassium 4.3, Chloride 107, Carbon Dioxide 24.0, Anion Gap 7, BUN 15, Creatinine 0.75, Est GFR (MDRD) Af Amer 93, Est GFR (MDRD) Non-Af 77, BUN/Creatinine Ratio 19.9, Glucose 142 H, Calcium 8.0 L, Magnesium 1.6, Total Bilirubin 0.60, Direct Bilirubin 0.16 07/19/21 06:13: Hemoglobin A1c 5.8 H 07/19/21 06:13: Phosphorus 4.4 Rhythm: Sinus rhythm Radiography Diagnostic Testing: Radiology Impression Abdomen/Pelvis CT 07/18/21 13:38 IMPRESSION: Paraumbilical hernia containing thick walled transverse colon with mild edema in the hernia sac, concerning for strangulated hernia without evidence for colonic obstruction. Colonic diverticulosis without acute diverticulitis. Small renal cysts. Mild bladder wall thickening, likely sequela of cystitis. Individualized dose optimization techniques were used for this CT. at 1459 Reported and signed by: Latosha Goodman MD Electronically Signed: Latosha Goodman MD at 14:58 EDT , Physical Exam Const alert, oriented x3 and no apparent distress Orientation / Consciousness: awake HEENT normocephalic and head/scalp atraumatic Eyes PERRL, EOMs intact bilaterally and conjunctivae normal Neck full ROM, supple and no JVD Resp clear to auscultation bilaterally Cardio regular rate, regular rhythm, S1 normal heart sound and S2 normal heart sound GI normal to inspection, nondistended, normoactive bowel sounds Extremity no pedal edema Skin no rashes or lesions noted Psych mental status grossly normal Assessment & Plan Assessment/Plan (1) Atherosclerotic heart disease of [place] coronary artery without angina pectoris: PLAN: The patient appears to be without any ongoing symptoms suspicious for her history of CAD. She will continue risk factor modification medical therapy as deemed appropriate. (2) Syncope: PLAN: The patient, as per her recent outpatient office note, did experience a previous episode of syncope or unresponsiveness . She was evaluated in an outside hospital emergency department. According to the records that have been received as an outpatient was thought this was related to a combination of her medications including her analgesic therapy, her muscle relaxant therapy, superimposed upon her previous cardiovascular medicines of beta-blockers and antiarrhythmics-amiodarone, all leading to bradycardia. Her previous medications were placed on hold. She has had no recurrent events since that time. She appears to remaining in sinus rhythm at this time. She has been previously scheduled as an outpatient to undergo a Holter monitor to assess her average rate and rhythm to assist in determining future medical management. She was asked, after discharge, to still pursue this option once she has recuperated somewhat from her current acute abdominal event. (3) Atrial fibrillation: PLAN: She appears to be remaining in sinus rhythm at the moment. Thus she will continue her current therapy. (4) Essential hypertension: PLAN: Her blood pressures will be followed. Her medications can be adjusted accordingly. (5) Incisional hernia of anterior abdominal wall with obstruction: PLAN: She is recuperating from her acute abdominal surgery. She appears without obvious adverse cardiovascular event. She may be discharged home today from the standpoint of the hospitalist team and general surgical team for continued outpatient follow-up. Addt'l Comments The above was discussed and reviewed with the patient as well as Dr. Yo of interventional cardiology who performed her recent [facility] cardiovascular consultation note. This note was generated using a voice recognition system and there may be incorrect words, spelling or punctuation that were not noted when reviewing the office note prior to saving.
--- NOTE | 2021-07-19 10:03 | PN.HOSP_ITS ---
Subjective Subjective Follow-up on postop medical management: Patient was seen and examined. Her pain is under control. She is being disc harged today. She denied any fever or chills or chest pain or dizziness or vomiting. She is being started on a regular diet and tolerating it. She has had several bowel movements. Objective Data Objective Data Vital Signs: Vital Signs Temp Pulse Resp BP Pulse Ox 97.8 F 65 18 150/82 H 98 07/19/21 08:18 07/19/21 08:18 07/19/21 08:18 07/19/21 08:18 07/19/21 08:18 Oxygen Flow Rate (L/min) 2 Oxygen Delivery Method Room Air Weight: 68.6 kg Body Mass Index (BMI) 28.2 Intake & Output: Intake and Output for Last 24 Hours 07/17/21 07/18/21 07/19/21 23:59 23:59 23:59 Intake Total 1050 / 1050 260 / 260 Output Total 50 / 50 Balance 1000 / 1000 260 / 260 Lab / Micro Data Result Diagrams: 07/19/21 06:13 07/19/21 06:13 Labs: Laboratory Results - last 24 hr 07/18/21 13:50: WBC 9.2, RBC 3.17 L, Hgb 11.1 L, Hct 32.6 L, MCV 102.8 H, MCH 35.0 H, MCHC 34.0, RDW Std Deviation 50.2 H, RDW Coeff of Yifan 13.2, Plt Count 294, MPV 10.4, Immature Gran % (Auto) 0.800, Neut % (Auto) 82.0 H, Lymph % (Auto) 10.0 L, [place] % (Auto) 5.5, Eos % (Auto) 1.4, Baso % (Auto) 0.3, Absolute Neuts (auto) 7.5, Absolute Lymphs (auto) 0.92, Nucleated RBC % 0 07/18/21 13:50: Sodium 136, Potassium 3.4 L, Chloride 104, Carbon Dioxide 26.0, Anion Gap 6, BUN 16, Creatinine 0.84, Estim Creat Clear Calc 33.89, Est GFR (MDRD) Af Amer 82, Est GFR (MDRD) Non-Af 68, BUN/Creatinine Ratio 19.0, Glucose 167 H, Calcium 9.3, Total Bilirubin 0.70, AST 81 H, ALT 119 H, Alkaline Phosphatase 302 H, Total Protein 7.3, Albumin 3.8, Globulin 3.5, Albumin/Globulin Ratio 1.1, Lipase 117 07/18/21 13:50: Phosphorus 2.5, Magnesium 1.8 07/18/21 14:20: Urine Color Yellow, Urine Clarity Clear, Urine pH 6.5, Ur Specific [place] 1.010, Urine Protein Negative, Urine Glucose (UA) Normal, Urine Ketones Negative, Urine Occult Blood Negative, Urine Nitrite Negative, Urine Bilirubin Negative, Urine Urobilinogen Normal, Ur Leukocyte Esterase Negative, Urine RBC 0 SEEN, Urine WBC 0 SEEN, Ur Squamous Epith Cells 0 SEEN, Urine Bacteria 0 SEEN, Urine Mucus 0 SEEN 07/18/21 15:30: Lactic Acid 1.7 07/18/21 20:26: POC Glucose 150 H 07/18/21 23:07: POC Glucose 155 H 07/19/21 06:13: WBC 10.5, RBC 2.78 L, Hgb 9.7 L, Hct 28.7 L, MCV 103.2 H, MCH 34.9 H, MCHC 33.8, RDW Std Deviation 51.7 H, RDW Coeff of Yifan 13.3, Plt Count 242, MPV 9.9, Immature Gran % (Auto) 0.600, Neut % (Auto) 91.5 H, Lymph % (Auto) 5.3 L, [place] % (Auto) 2.5, Eos % (Auto) 0.0, Baso % (Auto) 0.1, Absolute Neuts (auto) 9.6 H, Absolute Lymphs (auto) 0.55 L, Nucleated RBC % 0, Differential Comment SCANNED 07/19/21 06:13: Sodium 138, Potassium 4.3, Chloride 107, Carbon Dioxide 24.0, Anion Gap 7, BUN 15, Creatinine 0.75, Estim Creat Clear Calc 28.47, Est GFR (MDRD) Af Amer 93, Est GFR (MDRD) Non-Af 77, BUN/Creatinine Ratio 19.9, Glucose 142 H, Calcium 8.0 L, Magnesium 1.6, Total Bilirubin 0.60, Direct Bilirubin 0.16, AST 44 H, ALT 85 H, Alkaline Phosphatase 235 H, Total Protein 6.5, Albumin 3.3, Globulin 3.2 07/19/21 06:13: Hemoglobin A1c 5.8 H 07/19/21 06:13: Phosphorus 4.4 07/19/21 06:26: POC Glucose 123 H Micro: Microbiology 07/18/21 16:10 Nasal Secretion SARS-CoV-2 Antigen (Rapid) - Final Radiography Diagnostic Testing: Radiology Impression Abdomen/Pelvis CT 07/18/21 13:38 IMPRESSION: Paraumbilical hernia containing thick walled transverse colon with mild edema in the hernia sac, concerning for strangulated hernia without evidence for colonic obstruction. Colonic diverticulosis without acute diverticulitis. Small renal cysts. Mild bladder wall thickening, likely sequela of cystitis. Individualized dose optimization techniques were used for this CT. at 1459 Reported and signed by: Latosha Goodman MD Electronically Signed: Latosha Goodman MD at 14:58 EDT Reading Location ID and State: [facility] / [place] Tel , Service support , Physical Exam Narrative Physical exam: General: Alert, Oriented x3, Cooperative, No apparent distress, Well developed HEENT: Atraumatic Oral: Moist Mucosa Neck: Supple Lungs: Clear to auscultation Cardiovascular: HS I+II, regular, no murmurs Abdomen: Dressing over the anterior abdominal wound, bowel Sounds Present, Soft, Non Tender Extremities: No edema Assessment & Plan Assessment/Plan (1) Incisional hernia of anterior abdominal wall with obstruction: PLAN: 1. POD #1 status post repair of incarcerated/obstructed incisional hernia No signs of gangrene were noted intraoperatively Postop, patient has done well, no acute events She is currently being discharged 2. Paroxysmal A. fib, rate controlled, resume preop medications if okayed by general surgery 3. Recent non-STEMI/nonobstructive atherosclerotic coronary artery disease, stable Continue aspirin, statin, metoprolol, amiodarone, amlodipine 4. Hypertension/Hypothyroidism/GERD/Chronic back pain status post kyphoplasty Continue on amlodipine, statin, ibesartan/hydrochlorothiazide, tramadol 5. DVT PPx- Xarelto Charges/Coding Visit Charges Inpatient E&M: 47763 Subs Hosp L2
--- NOTE | 2021-07-19 10:40 | CASEMGMT ---
RN EDWIN Face to Face with patient for initial transition planning/care coordination assessment. RN CM introduced self and role at [facility]. Patient lying in bed, alert and oriented. Patient willing to participate in assessment and is able to answer all questions appropriately. Care providers, pharmacy, and demographics verified. Patient wishes to discharge home, denies need for home health at this time. Patient states she has no further needs or concerns at this time. CM to follow for discharge planning needs that may arise. PCP: [facility] Specialists: Parul, mold shop supervisor; Nataly, spinal surgeon; Yfn, TAPE RECORDING MACHINE OPERATOR Preferred [facility]acy: [facility] Insurance: [facility] Prescription Benefit: yes, [employer] Living Will/HPOA: yes, son Dante Dean HPOA LNOK: son, daughter Living Arrangements: Patient lives alone in single story home with 2 steps and railing. Patient states she is independent at home. Transportation: self/son DME/HHC: Patient states she has shower chair, cane, grab bars at home. Patient states she has aide from [employer] that comes 2 days/week for 4hrs/day for cleaning. Disposition Plan: Patient to discharge home with family support and follow-up plans in place. Valerie LUONG, RN, CM
[2021-07-19] MEDS: Insulin Lispro 100 UNIT/ML INSULN.PEN SC (11:36)
[2021-07-19 12:01] LABS: Bedside Glucose 183 mg/dL (74-106)
[2021-07-19 13:11] LABS: Pathologist Review Reviewed
== END 2021-07-19 14:28 | disposition home or self-care (01) | DRG 355 ==
LOC: ED 16:13 → SDC 16:14 → ED 16:51 → MS3 16:53
PROVIDERS: Internal Medicine; Admitting Provider Surgery; Emergency Provider Student in an Organized Health Care Education/Training Program; PCP Internal Medicine; Visit Provider Internal Medicine
PROC: (CPT 49561; principal; 2021-07-18 16:45)
DX: K43.6 Other and unspecified ventral hernia with obstruction, without gangrene (principal); I48.0 Paroxysmal atrial fibrillation; E03.9 Hypothyroidism, unspecified; I25.10 Atherosclerotic heart disease of native coronary artery without angina pectoris; K21.9 Gastro-esophageal reflux disease without esophagitis; K42.9 Umbilical hernia without obstruction or gangrene; I10 Essential (primary) hypertension; I25.2 Old myocardial infarction; Z79.82 Long term (current) use of aspirin; Z79.01 Long term (current) use of anticoagulants; G89.29 Other chronic pain; R73.9 Hyperglycemia, unspecified; Z66 Do not resuscitate; Z79.899 Other long term (current) drug therapy; E87.6 Hypokalemia
CPT/HCPCS: 49561; 36415; 74177; 80048; 80053; 80076; 81001; 82962; 83036; 83605; 83690; 83735; 84100; 85025; 87811; 88302; 93005; 96361; 96365; 96367; 96375; 97162; 97166; 99218; 99251; 99283; J7030; J7050; J7120; Q9967; A4216; G0378; G0463; J2405

== ENCOUNTER → 2021-08-27 | Outpatient (CLI) | payer MEDICARE, SELFPAY ==
--- NOTE | 2021-08-27 11:00 | TELEMED_ITS ---
[facility] has confirmed receipt of a request for visit. This document confirms receipt of the order initiating the consult. To find the results of the consultation, please view the patient's reports for the scanned Telemed Consult.
== END | disposition home or self-care (01) ==
LOC: PSN 08:21
PROVIDERS: PCP Internal Medicine; Visit Provider Internal Medicine
DX: R41.89 Other symptoms and signs involving cognitive functions and awareness (principal); I48.91 Unspecified atrial fibrillation; I10 Essential (primary) hypertension; I25.2 Old myocardial infarction; I25.10 Atherosclerotic heart disease of native coronary artery without angina pectoris; R55 Syncope and collapse
CPT/HCPCS: 93225; 93226; 95819

== ENCOUNTER 2022-06-19 11:44 | Emergency (ER) | payer MEDICARE, SELFPAY ==
[2022-06-19 11:47] VITALS: BP 137/62; PULSE 92; RESP 18; TEMP 36.4; O2SAT 99; BMI 30.5
[2022-06-19 11:49] VITALS: O2SAT 100
[2022-06-19 11:53] VITALS: BP 137/62; PULSE 85; RESP 20; TEMP 36.6; O2SAT 98
--- NOTE | 2022-06-19 12:06 | ED.VIS.DYS ---
HPI <ARABELLA Morgan - Last Filed: 06/19/22 13:58> History of Present Illness Chief Complaint: Shortness of Breath Narrative Narrative: Patient presenting today after experiencing an episode of shortness of breath and lightheadedness this morning while at [facility]. She states that she was walking up the steps at [facility] when she became more short of breath than usual as she has some shortness of breath at baseline on exertion. She also began to feel little bit lightheaded and decided to check her pulse and noticed that it was irregular. That time she decided to call 911. Patient has a history of paroxysmal atrial fibrillation and is on Xarelto. She states the last time she went into [facility] was around a year ago. Patient did spontaneously convert to normal sinus rhythm in the ambulance. She states she feels fine now and is no longer short of breath or lightheaded. She denies any chest pain, chest discomfort, abdominal pain, and nausea. 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 Nonrheumatic aortic (valve) stenosis Osteopenia Osteoporosis Syncope Systolic CHF Tachycardia Thrombophilia Home Medications levothyroxine 125 mcg tablet 125 mcg PO DAILY 04/17/21 [History Last Taken 04/17/21] omeprazole 20 mg tablet,delayed release 20 mg PO DAILY 04/17/21 [History Last Taken 04/17/21] rivaroxaban 20 mg tablet (Xarelto) 20 mg PO DAILY 04/17/21 [History Last Taken 04/16/21] irbesartan 150 mg-hydrochlorothiazide 12.5 mg tablet 1 tab PO QAM #90 tabs 04/29/21 [Rx Last Taken Unknown] acetaminophen 500 mg tablet 500 mg PO Q8H PRN Pain 07/15/21 [History Last Taken Unknown] calcium carbonate 600 mg-vitamin D3 12.5 mcg (500 unit) capsule (Calcium 600 with Vitamin D3) 1 cap PO BID 10/21/21 [History Last Taken Unknown] nitroglycerin 0.4 mg sublingual tablet 0.4 mg sublingual Q5M PRN 12/10/21 [History Last Taken Unknown] amlodipine 2.5 mg tablet 2.5 mg PO QHS #90 tabs 05/03/22 [Rx Last Taken Unknown] atorvastatin 40 mg tablet (Lipitor) 40 mg PO QHS #90 tabs 05/03/22 [Rx Last Taken Unknown] gabapentin 100 mg capsule 200 mg PO TID 05/03/22 [History Last Taken Unknown] Allergy/AdvReac Type Severity Reaction Status Date / Time bee venom protein (honey bee) Allergy Anaphylaxis Verified 06/19/22 11:46 tizanidine Allergy Passed out Verified 06/19/22 11:46 Family History Mother Congestive heart failure Father Cancer bladder, liver, bone Mother Congestive heart failure Hypertension CVA (cerebral vascular accident) Surgical History History of carpal tunnel surgery History of hernia repair (~07/25/21) History of hysterectomy History of kyphoplasty History of left heart catheterization (~04/19/21) History of tonsillectomy Social History Smoking Status: Never smoker alcohol intake: never substance use type: does not use caffeine: No ROS <ARABELLA Morgan - Last Filed: 06/19/22 13:58> ROS ED Constitutional Constitutional ED: Denies chills, fever(s) or sweats Eyes Eyes: Denies blurry vision or diplopia Cardiovascular Cardiovascular: Denies chest pain or palpitations Respiratory/Chest Respiratory/Chest: Denies cough or dyspnea Gastrointestinal Gastrointestinal: Denies abdominal pain, nausea or vomiting Genitourinary Genitourinary ED: Denies dysuria, hematuria or urinary urgency Musculoskeletal Musculoskeletal: Denies arthralgias, back pain, myalgias or neck pain Integumentary Denies abscess, Abrasions or rash Neurologic Neurologic: Denies confusion, dizziness or paresthesias Psychiatric Psychiatric: Denies anxiety or depression EXAM <ARABELLA Morgan - Last Filed: 06/19/22 13:58> Physical Exam Const Vital Signs: 06/19/22 11:47 06/19/22 11:49 06/19/22 11:53 Temperature 97.6 F L 97.8 F Temperature Source Temporal Temporal Pulse Rate 92 85 Respiratory Rate 18 20 H Respiratory Effort Short of Breath Respiratory Depth Normal Respiratory Pattern Normal Blood Pressure 137/62 H 137/62 H Blood Pressure Mean 87 87 Pulse Ox 99 98 Oxygen Delivery Method Room Air Room Air Room Air 06/19/22 12:58 06/19/22 13:05 06/19/22 13:05 Temperature Temperature Source Pulse Rate 76 70 70 Respiratory Rate 24 H 25 H 22 H Respiratory Effort Respiratory Depth Respiratory Pattern Blood Pressure 121/74 H 130/61 H 130/61 H Blood Pressure Mean 89 84 Pulse Ox 100 97 98 Oxygen Delivery Method Room Air Room Air Positive well nourished, well developed and no apparent distress General Appearance ED: well developed HEENT Reports normocephalic and head/scalp atraumatic Mouth ED: Yes moist mucous membranes normal Eyes PERRL and EOMs intact bilaterally Neck full ROM and supple Chest Wall inspection of chest normal Resp normal respiratory effort and clear to auscultation bilaterally Cardio regular rate and regular rhythm GI soft to palpation, non-tender, non-distended and no masses Back/Spine normal ROM and normal to inspection Extremity normal to inspection and full ROM Neuro oriented x3, CN's II-XII intact bilaterally, moves all extremities, no focal motor deficits and no sensory deficits noted Sensorium / Orientation: awake and alert Psych mental status grossly normal and thought process normal Skin no rashes or lesions noted and no wounds <Dr. Dimitrios Davenport MD - Last Filed: 06/19/22 13:05> Physical Exam Const Vital Signs: 06/19/22 11:47 06/19/22 11:49 06/19/22 11:53 Temperature 97.6 F L 97.8 F Temperature Source Temporal Temporal Pulse Rate 92 85 Respiratory Rate 18 20 H Respiratory Effort Short of Breath Respiratory Depth Normal Respiratory Pattern Normal Blood Pressure 137/62 H 137/62 H Blood Pressure Mean 87 87 Pulse Ox 99 98 Oxygen Delivery Method Room Air Room Air Room Air 06/19/22 12:58 06/19/22 13:05 06/19/22 13:05 Temperature Temperature Source Pulse Rate 76 70 70 Respiratory Rate 24 H 25 H 22 H Respiratory Effort Respiratory Depth Respiratory Pattern Blood Pressure 121/74 H 130/61 H 130/61 H Blood Pressure Mean 89 84 Pulse Ox 100 97 98 Oxygen Delivery Method Room Air Room Air [facility] <ARABELLA Morgan - Last Filed: 06/19/22 13:58> [facility] Narrative Medical decision making narrative: Patient presenting today after going into A-fib this morning while in [facility] and experiencing shortness of breath on exertion and dizziness. Patient has a history of A-fib and is on Xarelto for this. She did convert to normal sinus rhythm while in the ambulance. She is in normal sinus rhythm here. She will be monitored on the heart monitor. EKG shows normal sinus rhythm. She is experiencing no shortness of breath or dizziness here. She is well-appearing and in no acute distress. She did not have any chest discomfort at any time. She is rate controlled now and has not gone back into A-fib. She is to have close follow-up with her PCP. She will be discharged home in stable condition and has been given return instructions. She is comfortable with plan. EKG Initial EKG: Comments: normal EKG, no repol abn. Reviewed and interpreted by attending ED physician. <Dr. Dimitrios Davenport MD - Last Filed: 06/19/22 13:05> [facility] [place] Rhythm Strip Rhythm Strip: Sinus Rhythm Rate: 75 Ectopy: None EKG Initial EKG: Attestation: I personally reviewed and interpreted this EKG as follows: Interpretation: Sinus Rhythm and No Acute Injury Pattern Comments: normal EKG, no repol abn Treatment and Re-Evaluation Comments:: Seen and evaluated independently and in conjunction with physician perinatal breastfeeding assistant. Agree with notes above unless documented otherwise. Patient had palpitations and a little bit of dyspnea and lightheadedness prior to coming here, felt like she was having an episode of A-fib which she has had in the past but it has been a year or so, upon presentation she had complete resolution of her symptoms, is on sinus rhythm on the monitor. Heart RRR no murmur, CTAB. EKG is normal. There were no repolarization abnormalities she had no symptoms of angina. She is anticoagulated. We observed her for an hour or 2 and she had no recurrence or other symptoms. I do not think she needs other testing or work-up right now. I recommend close outpatient follow-up with her doctor, it is noted that she is on no AV sarah blockers or amiodarone which she was on in the past. I reviewed an outpatient cardiology note from April of this year. It seems that she had symptomatic bradycardia and was seen at an outside hospital, and she was on amiodarone and metoprolol they were discontinued because of this. Her blood pressures 121/74 and she is rate controlled right now. For that reason I am not adding any other new medications or changing anything until she follows up or has recurrent symptoms, she is comfortable with that plan will follow up. Discharge Plan Triage Chief Complaint: Shortness of Breath ED Midlevel Provider: Argenis Yeung ED Provider: Dimitrios Davenport Dx/Rx/DC Orders Clinical Impression: Atrial fibrillation Instructions: AFib Dc Prescriptions: No Action acetaminophen 500 mg tablet 500 mg PO Q8H PRN (Reason: Pain) calcium carbonate-vitamin D3 [Calcium 600 with Vitamin D3] 600 mg-12.5 mcg (500 unit) capsule 1 cap PO BID atorvastatin [Lipitor] 40 mg tablet 40 mg PO QHS Qty: 90 3RF amlodipine 2.5 mg tablet 2.5 mg PO QHS Qty: 90 3RF nitroglycerin 0.4 mg tablet, sublingual 0.4 mg sublingual Q5M PRN Rx Instructions: do not exceed 3 doses per episode gabapentin 100 mg capsule 200 mg PO TID levothyroxine 125 mcg Tablet 125 mcg PO DAILY omeprazole 20 mg Tablet,Delayed Release (Dr/Ec) 20 mg PO DAILY Xarelto 20 mg tablet 20 mg PO DAILY irbesartan-hydrochlorothiazide 150-12.5 mg tablet 1 tab PO QAM Qty: 90 3RF Primary Care Provider: Art Hayward Referrals: Art Hayward MD [Primary Care Provider] - Rios Teran MD [Med Staff - Active Staff] - (Call for appointment) Disposition Disposition: Home, Self Care Discharge Date/Time: 06/19/22 13:15
[2022-06-19 12:58] VITALS: BP 121/74; PULSE 76; RESP 24; O2SAT 100
[2022-06-19 13:05] VITALS: BP 130/61; PULSE 70; RESP 22; RESP 25; O2SAT 97; O2SAT 98
== END 2022-06-19 13:15 | disposition home or self-care (01) ==
PROVIDERS: Emergency Provider Emergency Medicine; PCP Internal Medicine; Visit Provider Emergency Medicine
DX: I48.91 Unspecified atrial fibrillation (principal); I11.0 Hypertensive heart disease with heart failure; I50.22 Chronic systolic (congestive) heart failure; I25.10 Atherosclerotic heart disease of native coronary artery without angina pectoris; R42 Dizziness and giddiness; Z79.01 Long term (current) use of anticoagulants
CPT/HCPCS: 93005; 99285; A4216

== ENCOUNTER → 2022-06-22 | Outpatient (CLI) | payer MEDICARE, SELFPAY ==
[2022-06-22 10:52] LABS: Absolute Lymphocyte Count 1.63 X10^3/uL (0.83-4.51); Absolute Neutrophil Count 6.5 X10^3/uL (2.0-7.7); Basophil# 0.02 X10^3/uL; Basophil% 0.2 % (0-1); Eosinophil# 0.09 X10^3/uL; Hematocrit 36.3 % (37-47); Hemoglobin 11.9 g/dL (12.0-15.0); Lymphocyte # 1.63 X10^3/ul (0.83-4.51); Lymphocyte % 18.5 % (19-41); Mean Corp Hgb Conc 32.8 g/dL (32-36); Mean Corpuscular Hgb 35.6 pg (27.0-32.0); Mean Corpuscular Volume 108.7 fL (81-99); Mean Platelet Vol. 11.2 fl (6.2-12.0); Monocyte# 0.53 X10^3/uL; NRBC Flagged by Analyzer 0 % (0-5); Neutrophil # 6.51 X10^3/uL (2.7-7.7); Neutrophil % 73.7 % (47-70); Platelet Count 262 K/mm3 (150-450); RBC Distribution Width CV 13.5 % (11.6-14.6); RBC Distribution Width SD 53.8 fl (35.1-43.9); Red Blood Count 3.34 M/mm3 (4.2-5.4); White Blood Count 8.8 K/mm3 (4.4-11.0)
[2022-06-22 11:10] LABS: BNP,B-Type NATRIURETIC PEPTIDE 114.2 pg/mL (0-100)
[2022-06-22 11:20] LABS: Anion Gap 8 (5-15); BUN 23 mg/dL (7-18); BUN/Creat Ratio 25.2 RATIO (10-20); Chloride 105 mmol/L (98-107); Creatinine, Serum 0.91 mg/dL (0.55-1.02); EST Glomerular Filtration Rate 62 mL/min (>60); Est Glom Filt Rate - Afr Amer 75 mL/min (>60); Glucose 99 mg/dL (74-106); Magnesium 1.8 mg/dL (1.6-2.6); Sodium Level 140 mmol/L (136-145); Thyroid Stim Hormone (TSH) 0.99 uIU/mL (0.358-3.74)
== END | disposition home or self-care (01) ==
LOC: LAB 10:18
PROVIDERS: PCP Internal Medicine; Referring Provider Nurse Practitioner Gerontology; Visit Provider Nurse Practitioner Gerontology
DX: R06.09 Other forms of dyspnea (principal); I48.91 Unspecified atrial fibrillation
CPT/HCPCS: 36415; 80048; 83735; 83880; 84443; 85025

== ENCOUNTER 2022-07-19 10:41 | Day surgery (SDC) | payer MEDICARE, SELFPAY ==
[2022-07-19 11:16] VITALS: BP 146/76; PULSE 82; RESP 16; TEMP 37.2; O2SAT 100; BMI 28.8
[2022-07-19] MEDS: Lactated Ringers 1,000 ML 15 ML IV (11:21)
--- NOTE | 2022-07-19 11:39 | HP.PCM_ITS ---
History and Physical Date of Admission: 07/19/22 ?86 F who presents to the office today for Follow up. PMH osteoarthritis/porosis; duodenal ulcer; anemia; Eleonora?s hypothyroid; atrial fibrillation, CHF ([facility]). [facility] established 02.18.22 with referral from PCP to evaluate blood in stool with possible hemorrhoid source; Xarelto is taken for atrial fibrillation. She has a history of hemorrhoids and was recently evaluated by Dr. Persaud [facility] who determined she has Grade 2-3 internal hemorrhoids with mucosal irritation/abrasion. Stools have also been a difficulty with decreased caliber and difficulty initiating BM but requires 2-3 BM to complete evacuation. Hydrocortisone suppository; topical cream; fiber choice. She continues to have constipation and some rectal bleeding. The bleeding has improved with frequency since previously. Is wondering if this could be contributing to her back pain. She is established with pain management, Dr. Murillo. ROS Const Constitutional: No anorexia, fatigue, fever(s), weight change or sleep problems Eyes Eyes: No change in vision ENT ENT: No abnormal hearing, difficulty swallowing, mouth lesions, tongue swelling or throat swelling Resp Respiratory: No cough or shortness of breath Cardio Cardiology: No chest pain at rest, chest pain with exertion, shortness of breath or dyspnea on exertion Gastro GI: No difficulty swallowing Genitourinary-Female: No difficulty urinating or burning urination Musc Musculoskeletal: No joint pain, joint swelling, muscle weakness or decreased muscle mass Skin Skin: No hair loss in leg, yellowing of the eye, itchy eyes, rash, skin ulcer or skin swelling Neuro Neurology: No abnormal hearing, abnormal movements, confusion, unsteady gait/balance or memory loss Psych Psychiatric: No anxiety, No confusion and No memory loss Endo Endocrine: No fatigue or weight change Aller/Imm Allergy/Immunologic: No itchy eyes, throat swelling or tongue swelling Andre/Lymp Hematologic/Lymphatic: No easy bleeding, easy bruising or enlarged lymph nodes Exam Const General: cooperative and comfortable Nutritional Appearance: average body habitus and well nourished [facility] Head: normal to inspection Ears: hearing grossly normal bilaterally Nose: external nose normal Face and sinus: normal facial exam Mouth: oral mucosae normal Throat: posterior oropharynx normal Eyes General: appearance normal, both eyes and all related structures Neck Neck: normal visual inspection Chest Chest palpation & inspection: normal inspection of the chest and normal palpation of entire chest wall Resp Effort & Inspection: normal respiratory effort Auscultation: Bilateral: Clear to Auscultation Cardio Palpation: normal PMI Rate: regular rate Rhythm: regular rhythm GI Inspection: normal to inspection Auscultation: normal bowel sounds Percussion: normal to percussion Palpation: no hepatosplenomegaly Other: Rectal examination with decreased sphincter tone and the presence of nontender, not excoriated external hemorrhoids.? There also was the presence of grade 2 to 3 internal hemorroids Skin General: no rashes or lesions noted Neuro General: patient alert Extrem General: normal to inspection Psych Affect: normal affect Quality Reporting Tobacco Screening ([facility]) Smoking Status: Never smoker Assessment and Plan Assessment and Plan (1) Constipation: ?Status:?Chronic ?Plan: She has become a fiber gummy supplement that is helping somewhat but she cannot remember Fiber Choice supplements that we have told.? Previously.? I will be down for her and I would like her to take 2 chewables in the morning every day. (2) Hemorrhoids: ?Status:?Chronic ?Plan: She will undergo flexible sigmoidoscopy with possible banding evaluation mild anal stenosis associated with internal hemorroids. I have examined the patient and the H&P has been reviewed. There are no clinical changes since date of exam.
--- NOTE | 2022-07-19 12:00 | COLBX_PTH ---
PATIENT: ALEX TRNA LOC: EN U#:[id number] AGE/SX: 87/F ROOM: RE07/19/[address]: Dr. Michael Jackson DO : 1935 BED: DIS: 07/19/2022 SPEC #: [id number] RECD: 07/19/22 16:17 STATUS: MIKAL VAUGHN #: [id number] LEONARD: 07/19/22 12:[address]: Michael Jackson DEPT: SURGICAL PATHOLOGY RECD BY: John Paul Maxwell ENTERED: 07/20/22 11:05 SP TYPE: COLON BX OTHR DR: Dr. Art Hayward MD Tissues: Rectum, NOS Procedures: Surgery Specimen Level IV HEADER OPERATION: Flexible sigmoidoscopy PRE-OP DIAGNOSIS: Constipation, hemorrhoids TISSUE SUBMITTED: Anal lesion biopsy MICROSCOPIC DIAGNOSIS Anal lesion, biopsy: Squamoglandular mucosal biopsy with glandular hyperplastic change. AM:steven 07/21/2022 MICROSCOPIC DESCRIPTION Slides are reviewed. GROSS DESCRIPTION Received in fixative is one container labeled with the patient's name and designated anal lesion biopsy. The specimen consists of two irregular fragments of light grewal soft tissue that in aggregate measure 0.6 x 0.6 x 0.1 cm. The specimen is totally submitted in one cassette. / AM:steven 07/20/2022 TC:5 CPT: 29730
[2022-07-19] MEDS: Silver Nitrate (BKC) 1 EACH (12:19)
[2022-07-19 12:24] VITALS: BP 125/65; BP 146/76; PULSE 85; RESP 16; TEMP 36.1; O2SAT 97
[2022-07-19 12:30] VITALS: BP 126/67; BP 146/76; PULSE 78; RESP 16; O2SAT 99
[2022-07-19 12:35] VITALS: BP 138/72; BP 146/76; PULSE 77; RESP 16; O2SAT 99
--- NOTE | 2022-07-19 12:35 | OP.CCLET_ITS ---
07/19/2022 Art Hayward Re : Flexible Sigmoidoscopy procedure for Kelsie Dean Dear Mainor This procedure was performed on Tuesday, July 19, 2022. My impressions and recommendations are as follows: Impressions : - Internal hemorrhoids that prolapse with straining, but require manual replacement into the anal canal (Grade III) and hypertrophied anal papilla(e) found on perianal exam. - Bleeding internal hemorrhoids. Banded. - Nodular mucosa at the anus. Biopsied. Injected. Recommendations : - Use fiber, for example Citrucel, Fibercon, Konsyl or Metamucil. - Colace 100 mg once a day x5 days My findings are described in the full procedure note, which is enclosed. If I can be of further assistance, please feel free to contact me at . Sincerely, Michael Jackson, 07/19/2022 12:35:16 PM This report has been signed electronically.
--- NOTE | 2022-07-19 12:35 | OP.FLEXSIG_ITS ---
Patient Name: Kelsie Dean Procedure Date: 07/19/2022 11:56 AM Date of : 1935 Age: 87 Procedure: Flexible Sigmoidoscopy Indications: Hematochezia Providers: Michael Jackson DO Referring MD: Michael Jackson DO Medicines: Monitored Anesthesia Care Patient Profile: This is an 87 year old female. Refer to note in patient chart for documentation of history and physical. Patient has symptoms of chronic episodes of bloody stool. Last Colonoscopy: date unknown. Unable to locate last colonoscopy report. Complications: No immediate complications. Procedure: Pre-Anesthesia Assessment: - Prior to the procedure, a History and Physical was performed, and patient medications and allergies were reviewed. The patient is competent. The risks and benefits of the procedure and the sedation options and risks were discussed with the patient. All questions were answered and informed consent was obtained. Patient identification and proposed procedure were verified by the physician in the pre-procedure area. Mental Status Examination: alert and oriented. Airway Examination: normal oropharyngeal airway and neck mobility. Respiratory Examination: clear to auscultation. CV Examination: normal. Prophylactic Antibiotics: The patient does not require prophylactic antibiotics. Prior Anticoagulants: The patient has taken no previous anticoagulant or antiplatelet agents. ASA Grade Assessment: II - A patient with mild systemic disease. After reviewing the risks and benefits, the patient was deemed in satisfactory condition to undergo the procedure. The anesthesia plan was to use monitored anesthesia care (MAC). Immediately prior to administration of medications, the patient was re-assessed for adequacy to receive sedatives. The heart rate, respiratory rate, oxygen saturations, blood pressure, adequacy of pulmonary ventilation, and response to care were monitored throughout the procedure. The physical status of the patient was re-assessed after the procedure. After obtaining informed consent, the endoscope was passed under direct vision. Throughout the procedure, the patient's blood pressure, pulse, and oxygen saturations were monitored continuously. The Colonoscope was introduced through the anus and advanced to the descending colon. The flexible sigmoidoscopy was accomplished without difficulty. The patient tolerated the procedure well. Scope In: 12:05:50 PM Scope Out: 12:19:56 PM Total Procedure Duration Time 0 hours 14 minutes 6 seconds Findings: The perianal exam findings include internal hemorrhoids that prolapse with straining, but require manual replacement into the anal canal (Grade III) and hypertrophied anal papilla(e). Bleeding internal hemorrhoids were found during retroflexion. The hemorrhoids were Grade II (internal hemorrhoids that prolapse but reduce spontaneously). A hemorrhoid was isolated with anoscopy. The ShortShot ligator was positioned over the hemorrhoid at the left lateral position. Suction was applied and one rubber band was placed over the hemorrhoid. This was checked to make certain that the muscularis was free of the band. Post-banding digital rectal exam showed band in good position. Mild oozing of blood was present. A localized area of mildly nodular mucosa was found at the anus. Biopsies were taken with a cold forceps for histology. Verification of patient identification for the specimen was done. Estimated blood loss was minimal. Area was successfully injected with 5 mL of a steroid solution for drug delivery. Estimated blood loss was minimal. Impression: - Internal hemorrhoids that prolapse with straining, but require manual replacement into the anal canal (Grade III) and hypertrophied anal papilla(e) found on perianal exam. - Bleeding internal hemorrhoids. Banded. - Nodular mucosa at the anus. Biopsied. Injected. Recommendation: - Use fiber, for example Citrucel, Fibercon, Konsyl or Metamucil. - Colace 100 mg once a day x5 days Procedure Code(s): --- Professional --- 07416, Sigmoidoscopy, flexible; with band ligation(s) (eg, hemorrhoids) 54567, Sigmoidoscopy, flexible; with biopsy, single or multiple 44879, Sigmoidoscopy, flexible; with directed submucosal injection(s), any substance CPT copyright 2017 [employer]. All rights reserved. The codes documented in this report are preliminary and upon electrician technician review may be revised to meet current compliance requirements. Michael Jackson DO 07/19/2022 12:35:16 PM This report has been signed electronically. Number of Addenda: 0 Note Initiated On: 07/19/2022 11:56 AM
[2022-07-19 12:40] VITALS: BP 136/75; BP 146/76; PULSE 77; RESP 16; TEMP 36.7; O2SAT 100
[2022-07-19 13:05] VITALS: BP 146/76
== END 2022-07-19 13:07 | disposition home or self-care (01) ==
LOC: EN 10:42 → AC 10:43
PROVIDERS: PCP Internal Medicine; Referring Provider Internal Medicine Gastroenterology; Visit Provider Internal Medicine Gastroenterology
PROC: 0DJD8ZZ Inspection of Lower Intestinal Tract, Via Natural or Artificial Opening Endoscopic (ICD-10-PCS; CPT 45330; principal; 2022-07-19 11:55)
DX: K59.00 Constipation, unspecified (principal); I48.91 Unspecified atrial fibrillation; K64.1 Second degree hemorrhoids; E03.9 Hypothyroidism, unspecified; Z79.01 Long term (current) use of anticoagulants
CPT/HCPCS: 45331; 45350; 45335; 88305; J7120; J2405